=== PATIENT | female | born 1930 | race Caucasian/White ===

== ENCOUNTER → 2017-10-25 | Outpatient (CLI) | payer MEDICARE ==
[~2017-10-25] MED LIST: ASPIRIN EC325 M1 PO; ATORVASTATIN CA40 MG PO; B12INJ IM; CALCIUM 500 +1 EAC5 PO; CIPROFLOXACIN500 M1 PO; CITRUCEL500 MG PO; DILTIAZEM HCL90 MG PO; GINKGO60 MG PO; HEALTH PO; IMDUR 30 MG TAB30 M1 PO; KRILL OIL500 MG PO; LOVASTAT40 PO; NITROGLYCERIN0.4 MG SUBLING; PERCOCET 5-3251 EACH PO; PROLIA60 MG/1 ML SQ; RANITIDINE 150150 M1 PO; TRIAMTERENE/HCT1 CA1 PO; VITAMIN E400 UNI6 PO
== END ==
LOC: M.LAB 04:38
DX: Z01.812 Encounter for preprocedural laboratory examination (principal)

== ENCOUNTER 2018-09-26 10:15 | Inpatient (IN) | payer MEDICARE ==
[~2018-09-26] VITALS: Ht 152.4 cm; Wt 59.4 kg
--- NOTE | ~2018-09-26 | EKG ---
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
[2018-09-26 10:45] VITALS: BP 154/128
[2018-09-26] MEDS ORDERED: DILTIAZEM HCL90 MG PO (11:10)
[2018-09-26] MEDS ORDERED: COMBIGAN EYE DR10 ML OPHTHALMIC (11:11)
[2018-09-26] MEDS ORDERED: REPLESTA50000 UNIT PO (11:13)
[2018-09-26 11:25] LABS: HEMATOCRIT 40.3 % (37.0-47.0); MCH 30.6 pg (26.0-34.0); MCHC 32.1 g/dL (28.0-37.0); MCV 95.3 fL (80.0-100.0); MPV 9.6 fl. (7.2-11.1); RBC 4.23 mil/uL (4.20-5.00); RDW-CV 15.2 % (10.5-14.5); WBC 7.2 thou/uL (4.0-11.0)
[2018-09-26 11:38] LABS: ALBUMIN 3.5 g/dL (3.4-5.0); CALCIUM 9.2 mg/dL (8.5-10.1); CREATININE 1.4 mg/dL (0.6-1.3); POTASSIUM 3.8 mmol/L (3.5-5.1); TOTAL BILIRUBIN 0.6 mg/dL (<0.1-1.0); TOTAL PROTEIN 6.9 g/dL (6.4-8.2)
[2018-09-26 16:18] VITALS: BP 124/81
--- NOTE | 2018-09-26 17:30 | 2DMMODE ---
[place] [address] 2 D/M-MODE ECHOCARDIOGRAM Name: VIC MOON Room: [address] IN [facility]#: [id number] Admission: 09/26/18 Attend Phys: Macho Gates, Discharge: Date of : [birth year] Date of Service: 09/26/18 1729 Report #: [id number] THIS REPORT FOR: //name// APPROVED REPORT Study performed: 09/26/2018 14:48:00 EXAM: Comprehensive 2D, Doppler, and color-flow Echocardiogram Patient Location: In-Patient Room #: [facility] Status: routine BSA: 1.56 HR: 79 bpm BP: 154/128 mmHg Rhythm: Atrial Fibrillation Other Information Study Quality: Good Indications Atrial Fibrillation 2D Dimensions IVSd: 9.14 (7-11mm) LVOT Diam: 18.37 (18-24mm) LVDd: 46.77 mm PWd: 10.40 (7-11mm) Ascending Ao: 30.66 (22-36mm) LVDs: 42.13 (25-40mm) Aortic Root: 32.31 mm Volumes Left Atrial Volume (Systole) LA ESV Index: 47.40 mL/m2 Aortic Valve AoV Peak Eulalio.: 0.84 m/s AO Peak Gr.: 2.84 mmHg LVOT Max P.46 mmHg AO Mean Gr.: 1.64 mmHg LVOT Mean P.63 mmHg LVOT Max V: 0.60 m/s AO V2 VTI: 12.98 cm LVOT Mean V: 0.36 m/s BRINDA (VTI): 1.92 cm2 LVOT V1 VTI: 9.42 cm AI Pettis: 1.50 m/s2 AI PHT: 516.17 ms Mitral Valve MV Decel. Time: 98.98 [place] [address] 2 D/M-MODE ECHOCARDIOGRAM Name: VIC MOON Room: [address] IN .R.#: [id number] Admission: 09/26/18 Attend Phys: Macho Gates, Discharge: Date of : [birth year] Date of Service: 09/26/18 1729 Report #: [id number] MV PHT: 28.70 ms MVA (PHT): 7.66 cm2 TDI Medial E' Eulalio.: 0.05 m/s Lateral E' Eulalio.: 0.08 m/s Pulmonary Valve PV Peak Eulalio.: 0.62 m/s PV Peak Gr.: 1.55 mmHg Tricuspid Valve RAP Estimate: 5.00 mmHg TR Peak Gr.: 35.09 mmHg RVSP: 40.00 mmHg PA Pressure: 40.00 mmHg Left Ventricle Left ventricle is at the upper limits of normal. There is diffuse hypokinesis of left ventricular wall motion. There is normal left ventricular wall thickness. Left ventricular systolic function is severely decreased. LVEF is 25%. This study is not technically sufficient to allow evaluation of the LV diastolic function due to atrial fibrillation. Right Ventricle The right ventricle is normal size. The right ventricular systolic function is normal. Atria Left atrium is moderate to severely dilated. The right atrium size is normal. Aortic Valve Mild aortic valve sclerosis. Mild aortic regurgitation. There is no aortic valvular stenosis. Mitral Valve The mitral valve is normal in structure. Moderate mitral regurgitation. No evidence of mitral valve stenosis. Tricuspid Valve The tricuspid valve is normal in structure. Moderate tricuspid regurgitation. Moderate pulmonary hypertension. Pulmonic Valve The pulmonary valve is normal in structure. [place] [address] 2 D/M-MODE ECHOCARDIOGRAM Name: VIC MOON Room: [address] IN [facility]#: [id number] Admission: 09/26/18 Attend Phys: Macho Gates, Discharge: Date of : [birth year] Date of Service: 09/26/18 1729 Report #: [id number] Great Vessels The aortic root is normal in size. IVC is normal in size and collapses >50% with inspiration. Pericardium There is no pericardial effusion. <Conclusion> Left ventricle is at the upper limits of normal. There is normal left ventricular wall thickness. Left ventricular systolic function is severely decreased. LVEF is 25%. The right ventricle is normal size. Left atrium is moderate to severely dilated. Mild aortic valve sclerosis. There is no aortic valvular stenosis. The mitral valve is normal in structure. Moderate mitral regurgitation. The tricuspid valve is normal in structure. Moderate tricuspid regurgitation. Moderate pulmonary hypertension. IVC is normal in size and collapses >50% with inspiration. There is no pericardial effusion. There is diffuse hypokinesis of left ventricular wall motion. <ELECTRONICALLY SIGNED> By: Alec Beltran MD, FACC 09/26/181728 28 28 Alec Beltran MD, FACC /INF
[2018-09-26 20:00] VITALS: BP 123/81
[2018-09-27] VITALS (7 sets, daily range): BP systolic 103–116; BP diastolic 63–72
[2018-09-27 05:43] LABS: ABSOLUTE EOSINOPHILS 0.1 thou/uL (0.0-0.7); ABSOLUTE LYMPHOCYTES 0.8 thou/uL (0.8-5.3); ABSOLUTE MONOCYTES 0.6 thou/uL (0.0-1.2); ABSOLUTE NEUTROPHILS 3.4 thou/uL (1.6-8.1); BASOPHILS 0.7 %; EOSINOPHILS 2.2 %; HEMATOCRIT 33.3 % (37.0-47.0); MCH 30.3 pg (26.0-34.0); MCHC 32.3 g/dL (28.0-37.0); MCV 93.9 fL (80.0-100.0); MONOCYTES 12.3 %; MPV 9.7 fl. (7.2-11.1); NUCLEATED RBCS 0 /100WBC; PLATELET COUNT* 141 thou/uL (150-400); POLYS 68.8 %; RBC 3.54 mil/uL (4.20-5.00); RDW-CV 15.1 % (10.5-14.5); WBC 4.9 thou/uL (4.0-11.0)
[2018-09-27 05:47] LABS: CALCIUM 8.5 mg/dL (8.5-10.1); CREATININE 1.3 mg/dL (0.6-1.3); POTASSIUM 3.1 mmol/L (3.5-5.1)
[2018-09-27 05:50] LABS: HEMOGLOBIN 10.7 gm/dL (12.0-15.0)
--- NOTE | 2018-09-27 13:56 | EKG ---
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: : 1930 Requested By: Macho Gates Order Number: [id number] Reading MD: Alec Beltran Measurements Intervals [place] Rate: 131 P: [place]: QRS: -47 QRSD: 140 T: 134 QT: 336 QTc: 496 Interpretive Statements Atrial fibrillation with rapid ventricular response LBBB Compared to ECG 10/31/2016 16:50:10 Sinus rhythm no longer present Left ventricular hypertrophy no longer present Early repolarization no longer present LEFT BUNDLE BRANCH BLOCK noted Electronically Signed On 09-27-2018 13:56:07 CDT by Alec Beltran [email or web address] <ELECTRONICALLY SIGNED> By: Alec Beltran MD, [facility] 09/27/18 1356 1115 1115 Alec Beltran MD, [facility] /EPI
[2018-09-28] VITALS (19 sets, daily range): BP systolic 108–154; BP diastolic 53–103
[2018-09-28 05:24] LABS: ABSOLUTE EOSINOPHILS 0.2 thou/uL (0.0-0.7); ABSOLUTE LYMPHOCYTES 0.8 thou/uL (0.8-5.3); ABSOLUTE MONOCYTES 0.6 thou/uL (0.0-1.2); ABSOLUTE NEUTROPHILS 4.5 thou/uL (1.6-8.1); BASOPHILS 0.3 %; EOSINOPHILS 2.5 %; HEMATOCRIT 32.8 % (37.0-47.0); HEMOGLOBIN 10.8 gm/dL (12.0-15.0); LYMPHOCYTES 12.5 %; MCH 30.7 pg (26.0-34.0); MCHC 32.9 g/dL (28.0-37.0); MCV 93.3 fL (80.0-100.0); MONOCYTES 10.4 %; MPV 9.8 fl. (7.2-11.1); NUCLEATED RBCS 0 /100WBC; PLATELET COUNT* 153 thou/uL (150-400); POLYS 74.3 %; RBC 3.51 mil/uL (4.20-5.00); RDW-CV 15.1 % (10.5-14.5)
[2018-09-28 05:34] LABS: CALCIUM 8.6 mg/dL (8.5-10.1); CREATININE 1.4 mg/dL (0.6-1.3); POTASSIUM 3.3 mmol/L (3.5-5.1)
--- NOTE | 2018-09-28 15:08 | TEE ---
[place] [address] TRANSESOPHAGEAL ECHOCARDIOGRAM Name: VIC MOON Room: [address] IN [facility]#: [id number] Admission: 09/26/18 Attend Phys: Macho Gates, Discharge: Date of : [birth year] Date of Service: 09/28/18 1508 Report #: [id number] THIS REPORT FOR: //name// APPROVED REPORT Study performed: 09/28/2018 10:45:20 EXAM: Transesophageal Echocardiogram Patient Location: In-Patient Room #: 219 Status: routine BSA: 1.56 HR: 93 bpm BP: 133/71 mmHg Rhythm: Atrial Fibrillation Other Information Study Quality: Good Indications Atrial Fibrillation Echo Enhancing Agent Indication: Rule out Shunt Agent(s) / Amount(s) Used: Agitated Saline 10 cc Procedure After obtaining informed consent, patient underwent transesophageal echo in the [employer]. Type of Sedation : Conscious Sedation Sedation was administered by Carisa Angelo RN. Sedation start time: 1102 Case end Time: 1117 Sedation was achieved intravenously with: Versed (3) Fentanyl (25) Transesophageal probe was inserted and advanced into esophagus without difficulty by Víctor Medina MD, FACC. Echo enhancement indication: R/O Septal defect. Echo enhancement agent administered: Agitated Saline The SHERYL was performed without complications. Synchronized Cardioversion acheived with 200 Joules after 1 attempt(s). Rhythm following Synchronized Cardioversion: Normal Sinus Rhythm Throughout the procedure, the blood pressure, pulse oximetry, cardiac rhythm, and rate were monitored. The patient tolerated the procedure without adverse effects. Recovery [address] [address] TRANSESOPHAGEAL ECHOCARDIOGRAM Name: VIC MOON Ramin Room: [address] IN [facility]#: [id number] Admission: 09/26/18 Attend Phys: Macho Gates, Discharge: Date of : [birth year] Date of Service: 09/28/18 1508 Report #: [id number] from conscious sedation was uneventful and vital signs were stable. Left Ventricle The left ventricle is normal size. There is diffuse hypokinesis of the left ventricle. There is normal left ventricular wall thickness. Left ventricular systolic function is moderate to severely decreased. No left ventricle thrombus noted on this study. LVEF is 30-35%. Right Ventricle The right ventricle is normal size. The right ventricular systolic function is normal. Atria Left atrium is severely dilated No thrombus is visualized in the left atrium or appendage PFO is noted. The right atrium size is normal. Aortic Valve Mild aortic valve sclerosis. Mild aortic regurgitation. There is no aortic valvular stenosis. Mitral Valve The mitral valve is normal in structure. Moderate mitral regurgitation. No evidence of mitral valve stenosis. Tricuspid Valve The tricuspid valve is normal in structure. Moderate tricuspid regurgitation. Pulmonic Valve Pulmonic valve is not well visualized. Great Vessels The aortic root is normal in size. Pericardium There is no pericardial effusion. <Conclusion> LVEF is 30-35%. There is diffuse hypokinesis of the left ventricle. PFO is noted. There is no aortic valvular stenosis. Mild [place] [address] TRANSESOPHAGEAL ECHOCARDIOGRAM Name: SARAIVIC P Room: [address] IN ..#: [id number] Admission: 09/26/18 Attend Phys: Macho Gates, Discharge: Date of : [birth year] Date of Service: 09/28/18 1508 Report #: [id number] No evidence of mitral valve stenosis. Moderate mitral regurgitation. Left atrium is severely dilated No thrombus is visualized in the left atrium or appendage <ELECTRONICALLY SIGNED> By: Víctor Medina MD, FACC 09/28/18 1508 1508 150 Víctor Medina MD, FACC /INF
--- NOTE | 2018-09-28 16:49 | EKG ---
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: : 1930 Requested By: Víctor Medina Order Number: [id number] Reading MD: Víctor Medina Measurements Intervals [place] Rate: 54 P: 26 [place]: 252 QRS: -23 QRSD: 107 T: 259 QT: 444 QTc: 421 Interpretive Statements Sinus rhythm Prolonged WA interval Borderline left axis deviation Nonspecific T abnormalities, diffuse leads Compared to ECG 09/26/2018 11:15:20 First degree AV block now present T-wave abnormality now present Atrial fibrillation no longer present Left bundle-branch block no longer present Electronically Signed On 09-28-2018 16:49:39 CDT by Víctor Medina [email or web address] <ELECTRONICALLY SIGNED> By: Víctor Medina MD, FAC 09/28/18 1649 1124 1124 Víctor Medina MD, [facility] /EPI
[2018-09-29] VITALS: BP 135/63
[2018-09-29 05:11] VITALS: BP 107/65
[2018-09-29 10:36] VITALS: BP 124/66
[2018-09-29 12:00] VITALS: BP 107/73
[2018-09-29 12:59] LABS: URINE BILIRUBIN NEGATIVE (Negative); URINE BLOOD NEGATIVE (Negative); URINE CLARITY CLEAR; URINE COLOR YELLOW; URINE GLUCOSE-RANDOM NEGATIVE (Negative); URINE KETONES NEGATIVE (Negative); URINE LEUKOCYTES-REFLEX TRACE (Negative); URINE NITRITE-REFLEX NEGATIVE (Negative); URINE PROTEIN NEGATIVE (Negative); URINE UROBILINOGEN 0.2 E.U./dl (0.2-1.0)
[2018-09-29 13:07] LABS: SQUAMOUS 0-3 Few /LPF (0-3)
[2018-09-29 13:08] LABS: BACTERIA-REFLEX >30 Many /HPF (None Seen); CASTS None Seen /LPF (None Seen); CRYSTALS None Seen /LPF (None Seen); MUCUS None Seen strn/LPF (None Seen); URINE RBC 0-2 Rare /HPF (0-2); URINE WBC-REFLEX 6-15 Few /HPF (0-5)
[2018-09-29 16:00] VITALS: BP 88/57
[2018-09-29 20:00] VITALS: BP 101/59
[2018-09-30 04:00] VITALS: BP 111/66
[2018-09-30 05:27] LABS: CALCIUM 8.1 mg/dL (8.5-10.1); CREATININE 1.5 mg/dL (0.6-1.3); POTASSIUM 3.1 mmol/L (3.5-5.1)
[2018-09-30 08:00] VITALS: BP 115/78
[2018-09-30 12:35] VITALS: BP 114/64
[2018-09-30 16:04] VITALS: BP 107/63
[2018-09-30 20:00] VITALS: BP 109/70
[2018-10-01] VITALS: BP 123/76
[2018-10-01 04:00] VITALS: BP 111/66
[2018-10-01 04:23] LABS: ABSOLUTE EOSINOPHILS 0.2 thou/uL (0.0-0.7); ABSOLUTE LYMPHOCYTES 0.8 thou/uL (0.8-5.3); ABSOLUTE MONOCYTES 0.6 thou/uL (0.0-1.2); ABSOLUTE NEUTROPHILS 3.8 thou/uL (1.6-8.1); BASOPHILS 0.6 %; EOSINOPHILS 2.9 %; HEMOGLOBIN 11.3 gm/dL (12.0-15.0); LYMPHOCYTES 14.9 %; MCH 30.3 pg (26.0-34.0); MCHC 32.5 g/dL (28.0-37.0); MCV 93.3 fL (80.0-100.0); MPV 9.6 fl. (7.2-11.1); NUCLEATED RBCS 0 /100WBC; PLATELET COUNT* 159 thou/uL (150-400); POLYS 70.6 %; RBC 3.75 mil/uL (4.20-5.00); RDW-CV 14.9 % (10.5-14.5); WBC 5.4 thou/uL (4.0-11.0)
[2018-10-01 04:27] LABS: CALCIUM 8.6 mg/dL (8.5-10.1); CREATININE 1.3 mg/dL (0.6-1.3)
[2018-10-01 04:50] LABS: POTASSIUM 5.1 mmol/L (3.5-5.1)
[2018-10-01 08:00] VITALS: BP 97/75
[2018-10-01] MEDS ORDERED: ELIQUIS2.5 MG PO (12:04)
[2018-10-01] MEDS ORDERED: PACERONE 200 M200 M1 PO (12:04)
[2018-10-01] MEDS ORDERED: LOSARTAN POTASS50 MG PO (12:05)
[2018-10-01] MEDS ORDERED: KAPSPARGO SPRIN25 MG PO (12:06)
[2018-10-01] MEDS ORDERED: TYLENOL EXTRA500 MG PO (12:07)
[2018-10-01 12:20] VITALS: BP 111/73
[2018-10-01] MEDS ORDERED: TOPROL XL25 MG PO (12:20)
[2018-10-01] MEDS ORDERED: DILTIAZEM HCL90 MG PO (12:21)
--- NOTE | 2018-10-01 14:48 | EKG ---
[place] [address] ELECTROCARDIOGRAM REPORT Name: VIC MOON Room: [address] IN .R.#: [id number] Admission: 09/26/18 Attend Phys: Macho Gates MD Discharge: 10/01/18 Date of : [birth year] Report #: [id number] THIS REPORT FOR: //name// [facility] Test Date: 2018-09-30 Test Time: 20:17:01 Pat Name: VIC MOON Department: Room: [address] Gender: F Electrician Master: : 1930 Requested By: Allen Guerra Order Number: [id number] Viry MD: Dion Sandoval Measurements Intervals [place] Rate: 94 P: [place]: QRS: -48 QRSD: 147 T: 132 QT: 401 QTc: 502 Interpretive Statements Atrial fibrillation Left bundle branch block Compared to ECG 09/28/2018 11:24:09 Left bundle-branch block now present Sinus rhythm no longer present First degree AV block no longer present T-wave abnormality no longer present Electronically Signed On 10-01-2018 14:48:47 CDT by Dion Sandoval [email or web address] <ELECTRONICALLY SIGNED> By: Dion Sandoval MD, FAC 10/01/18 1448 16 16 Dion Sandoval MD, [facility] /EPI
--- NOTE | 2018-10-03 08:25 | 24HR ---
[place] [address] HOLTER MONITOR REPORT Name: VIC MOON Room: [address]#: [id number] Admission: 09/26/18 Attend Phys: Macho Gates, Discharge: 10/01/18 Date of : [birth year] Date of Service: 09/28/18 1509 Report #: [id number] THIS REPORT FOR: //name// CC: Macho Resendez DATE OF SERVICE: 09/28/2018 INPATIENT SHERYL-GUIDED CARDIOVERSION INDICATION: Atrial fibrillation, congestive heart failure. The patient presents with rapid atrial fibrillation, which was poorly controlled despite aggressive IV medications. She presents with cardiomyopathy and acute systolic congestive heart failure. CONSENT: The risks and benefits of the procedure described to the patient in lay terms. The patient elects to proceed. After informed consent, the patient was taken to the labor supervisor. A transesophageal echocardiogram was performed. Conscious sedation was administered prior to this with usual monitoring of heart rate, oxygenation, saturation, blood pressure, and respiratory rate. After reassessing level of sedation, the transesophageal probe was withdrawn and a DC cardioversion 200 joules, biphasic was utilized to convert the patient from atrial fibrillation heart rates in the one-teens to sinus bradycardia heart rates in the mid 50s. The patient tolerated the procedure well. IMPRESSION: 1. Successful transesophageal echocardiogram-guided cardioversion. 2. Atrial fibrillation. 3. Congestive heart failure. <ELECTRONICALLY SIGNED> By: Allen Guerra MD, FACC 10/03/18 0825 1509 1944 Víctor Medina MD, FACC /nt
== END 2018-10-01 14:36 | disposition home or self-care (01) | DRG 291 ==
LOC: M.2W 10:15
PROVIDERS: Internal Medicine Cardiovascular Disease; ADMIT Internal Medicine
PROC: B24BZZ4 Ultrasonography of Heart with Aorta, Transesophageal (ICD-10-PCS; principal; 2018-09-28)
PROC: 5A2204Z Restoration of Cardiac Rhythm, Single (ICD-10-PCS; principal; 2018-09-28)
DX: I13.0 Hypertensive heart and chronic kidney disease with heart failure and stage 1 through stage 4 chronic kidney disease, or unspecified chronic kidney disease (principal); I50.31 Acute diastolic (congestive) heart failure; N17.9 Acute kidney failure, unspecified; N39.0 Urinary tract infection, site not specified; R06.03 Acute respiratory distress; I25.10 Atherosclerotic heart disease of native coronary artery without angina pectoris; D64.9 Anemia, unspecified; I42.9 Cardiomyopathy, unspecified; N18.3 Chronic kidney disease, stage 3 (moderate); I48.2 Chronic atrial fibrillation; Z88.5 Allergy status to narcotic agent; Z91.041 Radiographic dye allergy status; Z79.82 Long term (current) use of aspirin; Z79.899 Other long term (current) drug therapy; Z95.1 Presence of aortocoronary bypass graft

== ENCOUNTER → 2018-10-16 | Outpatient (CLI) | payer MEDICARE ==
[~2018-10-16] MED LIST changes: +COMBIGAN EYE DR10 ML OPHTHALMIC; +ELIQUIS2.5 MG PO; +KAPSPARGO SPRIN25 MG PO; +LOSARTAN POTASS50 MG PO; +PACERONE 200 M200 M1 PO; +REPLESTA50000 UNIT PO; +TOPROL XL25 MG PO; +TYLENOL EXTRA500 MG PO
[2018-10-16 10:14] LABS: CREATININE 1.2 mg/dL (0.6-1.3); POTASSIUM 3.2 mmol/L (3.5-5.1)
== END ==
LOC: M.LAB 09:49
PROVIDERS: Registered Nurse
DX: I50.42 Chronic combined systolic (congestive) and diastolic (congestive) heart failure (principal); I48.91 Unspecified atrial fibrillation

== ENCOUNTER → 2018-10-24 | Outpatient (CLI) | payer MEDICARE ==
[2018-10-24 13:28] LABS: CALCIUM 9.2 mg/dL (8.5-10.1); CREATININE 1.5 mg/dL (0.6-1.3); POTASSIUM 4.2 mmol/L (3.5-5.1)
== END ==
LOC: M.LAB 12:59
PROVIDERS: Nurse Practitioner
DX: I50.32 Chronic diastolic (congestive) heart failure (principal)

== ENCOUNTER 2018-11-03 22:18 | Inpatient (IN) | payer MEDICARE ==
[~2018-11-03] VITALS: Ht 152.4 cm; Wt 59.5 kg
--- NOTE | ~2018-11-03 | OP ---
[address] [address] OPERATIVE REPORT Name: SARAIVIC M Room: [address] IN M.R.#: [id number] Admission: 11/03/18 Attend Phys: Hira Zhou MD Discharge: Date of : [birth year] Report #: [id number] THIS REPORT FOR: //name// CC: Prince Zhou DATE OF SERVICE: 11/05/2018 PREOPERATIVE DIAGNOSIS: Left intertrochanteric femur fracture. POSTOPERATIVE DIAGNOSIS: Left intertrochanteric femur fracture. PROCEDURES: 1. Closed reduction and cephalomedullary nailing of left intertrochanteric femur fracture. 2. Physician-directed fluoroscopy less than 1 hour. SURGEON: Hira Moore DO. MICROBIOLOGY LAB MANAGER: Milvia Dodge DO ANESTHESIA: General. ANTIBIOTICS: Ancef IV preoperatively. BLOOD LOSS: 150 mL. FLUIDS: 600 mL. COMPLICATIONS: None. SPECIMENS: None. DRAINS: None. CONDITION: The patient is stable to PACU. IMPLANTS: Monica gamma nail 11 x 180 mm x 125 degree with appropriately sized lag and distal interlocking screw. INDICATIONS FOR PROCEDURE: The patient admitted to [facility] with a left intertrochanteric femur fracture. Our consultation was requested. I went over with the family and the patient diagnosis, plan for surgery, reasoning for surgery, risks and complications associated. They wished to proceed. We obtained consent. [address] [place] [address] OPERATIVE REPORT Name: VIC MOON Room: [address] IN M.R.#: [id number] Admission: 11/03/18 Attend Phys: Hira Zhou MD Discharge: Date of : [birth year] Report #: [id number] DESCRIPTION OF PROCEDURE: I marked the left lower extremity in the presence of the operative team members. Everyone agreed this was correct. She was taken back to the operative suite where general anesthetic was administered. She was then transferred over to the operating table in supine position, well padded and secured. The table was then used to gain traction and control rotation and reduced the fracture. C-arm confirmed that we had reduced the fracture appropriately in multiple planes. The left lower extremity was then sterilely prepped and draped in standard fashion. Timeout was performed indicating correct patient, procedure, site, antibiotics and that implants were present and sterile. All team members agreed. Using the C-arm to help marked out incisions. Incision was made proximal to the greater trochanter. Dissection down to the trochanter. A guidewire was inserted and advanced on multiplanar C-arm imaging confirmed to be in appropriate position and then reamed over. Implant timeout performed and the final nail was thrown on the back table and the 11 x 180 mm x 125 degree nail was inserted into the femur. Incision made for a double sleeve for lag screw placement. This was placed down to bone. A guidewire was placed in appropriate position on multiplanar C-arm imaging and advanced into the head appropriately. Measured, reamed and placed the appropriately sized lag screw. During lag screw placement, multiple images were taken showing that we did not have any rotation or malreduction of the fracture. We then engaged our set screw fully and backed off a quarter turn, confirmed that it was engaged by not being able to turn the lag screwdriver handle. We then removed the lag screwdriver handle, triple sleeve down to bone for static interlocking screw after making an incision, drilled, measured and placed an appropriately-sized distal interlocking screw. External aiming devices removed. Final C-arm images showed excellent placement of hardware and reduction of fracture. Saved images and dismissed C-arm thoroughly irrigated with normal saline. Closure was with 0 Vicryl deep [id number] interrupted, 2-0 Monocryl subcutaneous and then emma for skin. Debriefing performed where we confirmed procedure, blood loss and that all counts were correct and final. All team members agreed. Sterile silver impregnated dressings were applied and she was extubated and taken off the operative table to PACU stable. POSTOPERATIVE COURSE AND EVALUATION: I spoke with her family members, addressed any questions they had. They were thankful for my time and efforts. She was resting in PACU, stable vital signs, pain controlled, neurovascularly intact in her extremities. PACU films showed stable internal fixation and fracture reduction. DVT prophylaxis will be pharmacological and mechanical. Weightbear as tolerated. PT, OT, case management to help with discharge planning. I encouraged nursing staff and all providers to [place] [address] OPERATIVE REPORT Name: VIC MOON Room: [address] IN .R.#: [id number] Admission: 11/03/18 Attend Phys: Hira Zhou MD Discharge: Date of : [birth year] Report #: [id number] Amended 11/07/18 for demographic error correction. By: 0830 0849Hira Moore DO /teto
[2018-11-03] MEDS ORDERED: FUROSEMIDE 40 M40 M1 PO (22:43)
[2018-11-03] MEDS ORDERED: POTASSIUM20 PO (22:43)
[2018-11-03] MEDS ORDERED: VITAMIN D250000 UNIT PO (22:44)
[2018-11-03] MEDS ORDERED: SPIRONOLACTONE25 M1 PO (22:44)
[2018-11-03 22:54] LABS: ABSOLUTE BASOPHILS 0.1 thou/uL (0.0-0.2); ABSOLUTE EOSINOPHILS 0.2 thou/uL (0.0-0.7); ABSOLUTE MONOCYTES 0.6 thou/uL (0.0-1.2); ABSOLUTE NEUTROPHILS 4.2 thou/uL (1.6-8.1); BASOPHILS 1.1 %; EOSINOPHILS 3.5 %; HEMATOCRIT 35.4 % (37.0-47.0); HEMOGLOBIN 11.5 gm/dL (12.0-15.0); LYMPHOCYTES 16.9 %; MCH 29.9 pg (26.0-34.0); MCHC 32.5 g/dL (28.0-37.0); MONOCYTES 10.2 %; MPV 9.3 fl. (7.2-11.1); NUCLEATED RBCS 0 /100WBC; PLATELET COUNT* 196 thou/uL (150-400); POLYS 68.3 %; RBC 3.85 mil/uL (4.20-5.00); RDW-CV 15.9 % (10.5-14.5); WBC 6.2 thou/uL (4.0-11.0)
[2018-11-03 23:03] LABS: ANION GAP 10 mmol/L (7-16); BUN 21 mg/dL (7-18); CALCIUM 8.7 mg/dL (8.5-10.1); CHLORIDE 108 mmol/L (98-107); CO2 26 mmol/L (21-32); CREATININE 1.4 mg/dL (0.6-1.3); GLUCOSE 146 mg/dL (70-99); POTASSIUM 4.4 mmol/L (3.5-5.1); SODIUM 144 mmol/L (136-145)
[2018-11-03 23:04] LABS: INR 1.2
[2018-11-03 23:14] LABS: ALBUMIN 2.9 g/dL (3.4-5.0); ALKALINE PHOSPHATASE 79 U/L (46-116); NT-PRO BRAIN NAT PEPTIDE 17385 pg/mL (<300); SGOT 14 U/L (15-37); SGPT 21 U/L (30-65); TOTAL BILIRUBIN 0.3 mg/dL (<0.1-1.0); TOTAL PROTEIN 6.2 g/dL (6.4-8.2); TROPONIN-I LEVEL <0.06 ng/mL (<0.06)
[2018-11-04] VITALS (8 sets, daily range): BP systolic 93–144; BP diastolic 58–98
[2018-11-04 01:22] LABS: URINE BILIRUBIN NEGATIVE (Negative); URINE BLOOD 1+ (Negative); URINE CLARITY CLEAR; URINE COLOR YELLOW; URINE GLUCOSE-RANDOM NEGATIVE (Negative); URINE KETONES NEGATIVE (Negative); URINE LEUKOCYTES-REFLEX NEGATIVE (Negative); URINE NITRITE-REFLEX NEGATIVE (Negative); URINE PROTEIN NEGATIVE (Negative); URINE UROBILINOGEN 0.2 E.U./dl (0.2-1.0)
[2018-11-04 01:38] LABS: SQUAMOUS NONE SEEN /LPF (0-3)
[2018-11-04 01:39] LABS: HYALINE CASTS 0-3 Few /LPF (None Seen)
[2018-11-04 01:40] LABS: BACTERIA-REFLEX >30 Many /HPF (None Seen); CRYSTALS None Seen /LPF (None Seen)
[2018-11-04] MEDS ORDERED: CALCIUM CITRAT1 EAC7 PO (02:50)
--- NOTE | 2018-11-04 05:21 | NUR ---
RECEIVED REPORT FROM LORI CARPENTER. PT TRANSFERRED TO 226. PT A&OX4. VSS. ADMISSION HISTORY & PHYSICAL ASSESSMENT COMPLETED AND CHARTED. FAMILY AT BS. PT ON RA. PT TRACING AFIB RVR BBB ON TELE. HR 110'S-120'S. STARTED ON CARDIZEM DRIP ORDERED. PT WITH UROSTOMY AND CLAIMED DO SELF CATHETERIZATION BY HERSELF Q4 WHILE AWAKE. PT COMPLAINED OF LEFT HIP PAIN- MEDS GIVEN PER MAR. CALL LIGHT WITHIN REACH.
--- NOTE | 2018-11-04 09:38 | NUR ---
ASSUMED CARE OF PT THIS AM AROUND 07- HOME CARE MANAGER RN IN PLACE ORDERED, TRACING A-FIB/BBB 110-120'2, CARDIZEM DRIP IN PLACE ORDERED- UPON ASSESSMENT PT NOTED TO BE RESTING IN BED, DAUGHTER AT SIDE- PT A&O X4- CONTINENT OF BOWEL, UROSTOMY NOTED TO RLQ, PT PERFORMS OWN STRAIGHT CATHS WITH DAUGHTERS ASSISTANCE- BED REST IN PLACE WITH Q 2 HOUR TURNS- LCTA, RESP EVEN AND UN-LABORED- VSS, O2 SAT 93% ON RA- ABD SOFT/ROUND/NON-TENDER, BS X4 QUADS- LAST BM REPORTED 11/03/18- IV NOTED TO RIGHT INTACT- SLIGHT SWELLING TO LLE WITH +1 PEDAL PULSE, 2+ TO RLE-TRACTION RECOMMENDED IF PT STARTS TO EXPERIENCE INCREASED PAIN WITH SPASMS PER ORTHO THIS AM- JAMAL ORR ON HOLD FOR PLANNED SURGERY IN AM, PT TO BE NPO AT MIDNIGHT- PAIN REPORTED TO BE CONTROLLED AT THIS TIME- CALL LIGHT AND PERSONAL BELONGINGS WITH IN REACH- HOURLY ROUNDS IN PLACE R/T SAFETY/NEEDS- ALL NEEDS MET AT THIS TIME-WCTM
--- NOTE | 2018-11-04 10:55 | CON ---
[address] [address] CONSULTATION Name: VIC MOON Room: [address] IN M.R.#: [id number] Admission: 11/03/18 Attend Phys: Hira Zhou MD Discharge: Date of : [birth year]/03/[birth year] Report #: [id number] THIS REPORT FOR: //name// CC: Prince Resendez DO Hira Zhou DATE OF SERVICE: 11/04/2018 CARDIOLOGY CONSULTATION HISTORY OF PRESENT ILLNESS: The patient is an 88-year-old, single white female, who I was asked to see in the hospital today for preoperative evaluation. The patient has an extensive past medical history. She apparently had multivessel coronary artery bypass surgery at [facility] in 1992. Recently, she has been followed by my partner, Dr. Sandoval. She presented in September with shortness of breath. She was found to be in atrial fibrillation. She was cardioverted, but had recurrent atrial fibrillation. It was decided to aim for rate control and anticoagulation with Xarelto. She has had no significant bleeding since that time. She denied any recent chest pain. However, she does get short of breath with exertion. She denies her heart beating irregularly or syncope. Yesterday, she was out in the yard, walking the dog when she apparently tripped and fell. She complained of hip pain and was brought here to [place] by ambulance. She was found to have a hip fracture. She is scheduled for surgery. I was asked to see her for preoperative evaluation. PAST MEDICAL HISTORY: Significant for urinary diversion. She has had a hysterectomy for cervical cancer. She has no history of diabetes. MEDICATIONS: At home consist of ranitidine, Eliquis, losartan, metoprolol, diltiazem, spironolactone. ALLERGIES: SHE HAS A PREVIOUS INTOLERANCE TO CONTRAST AND MORPHINE. FAMILY HISTORY: Positive for heart disease. SOCIAL HISTORY: [place] is , [place] No smoking or alcohol abuse. REVIEW OF SYSTEMS: She has had no history of stroke, asthma, peptic ulcer disease, liver disease, kidney disease, psychiatric illness or chronic skin condition. PHYSICAL EXAMINATION: GENERAL: Revealed an elderly frail-appearing female, [place] [address] CONSULTATION Name: VIC MOON Room: [address]#: [id number] Admission: 11/03/18 Attend Phys: Hira Zhou MD Discharge: Date of : [birth year]/03[birth year] Report #: [id number] VITAL SIGNS: Showed a blood pressure of 110/60, pulse is 100. She is afebrile. HEENT: She was anicteric. Conjunctivae pale. Mucous members appear dry. NECK: Veins do not appear distended. CHEST: Clear to auscultation. CARDIOVASCULAR: Irregular tachycardia. No significant murmur. ABDOMEN: Soft. EXTREMITIES: Had no edema. Dorsalis pedis pulse cannot be palpated. SKIN: Cool and dry. NEUROLOGIC: Nonfocal. On the monitor, she appears to be in atrial fibrillation, with increased ventricular response rate. LABORATORY DATA: On her workup, she actually had an echocardiogram in September which showed ejection fraction of only 25%, atrial enlargement, aortic sclerosis, moderate mitral regurgitation, moderate tricuspid insufficiency, moderate pulmonary hypertension. Her last nuclear stress test in 2016 showed no evidence of ischemia, apical defect, no reversible defects. Ejection fraction appeared preserved. Her lab work: Sodium 144, BUN 21, creatinine 1.4, glucose 146. Her albumin is 2.9. Troponin 0.06. BNP 17,385 in September. TSH was 2.8. White blood cell count 6.2, hemoglobin 11.5. IMPRESSION AND RECOMMENDATIONS: 1. Persistent atrial fibrillation. The patient is on a beta saad and calcium saad for rate control. The patient has been anticoagulated with Eliquis. 2. Cardiomyopathy. The patient has been on an ARB and beta saad and Aldactone. 3. History of urinary diversion. The patient has an ileostomy in place. 4. Contrast allergy. 5. Hip fracture. The patient is scheduled for hip surgery. The patient appears to have no cardiac contraindication to surgery. However, she will be at risk for cardiac complications because of her advanced age, history of coronary artery disease, history of cardiomyopathy, history of atrial fibrillation. She will need to hold her Eliquis prior to surgery which will put her at risk for stroke. <ELECTRONICALLY SIGNED> By: Allen Guerra MD, FACC 11/04/18 1055 [id number] Guerra MD, FACC /nt
--- NOTE | 2018-11-04 11:35 | EKG ---
[place] [address] ELECTROCARDIOGRAM REPORT Name: SARAIVIC Bucky Room: [address] ADM IN M.R.#: [id number] Admission: 11/03/18 Attend Phys: Hira Zhou MD Discharge: Date of : [birth year]/03/[birth year] Report #: [id number] THIS REPORT FOR: //name// [facility] ED Test Date: 2018-11-03 Test Time: 22:40:24 Pat Name: VIC MOON Department: Room: [facility] Gender: F Batcher Operator: [place] : 1930 Requested By: Anjali Maldonado Order Number: [id number] MD: Allen Guerra Measurements Intervals [place] Rate: 111 P: [place]: QRS: -47 QRSD: 163 T: 138 QT: 409 QTc: 556 Interpretive Statements Atrial fibrillation Left bundle branch block Compared to ECG 09/30/2018 20:17:01 rate increased Electronically Signed On 11-04-2018 11:35:37 CDT by Allen Guerra [email or web address] <ELECTRONICALLY SIGNED> By: Allen Guerra MD, [facility] 11/04/18 1135 [id number] [id number] Allen Guerra MD, FACC /EPI
--- NOTE | 2018-11-04 16:29 | NUR ---
PT CURRENTLY RESTING IN BED SLLEEPING- DAUGHTER AT SIDE- PT NOTED TO HAVE SEVERAL VISITORS THROUHG OUT SHIFT, UNABLE TO REST WELL- PERCH MENDER IN PLACE ORDERED, TRACING A-FIB 98-117 AT THIS THIS TIME- CARDIZEM 90 MG TID STARTED THIS SHIFT ALONG WITH METOPROLOL; CARDIZEM DRIP D/C'D AROUND 1115- PRN HYDROCODONE GIVEN X1 THIS SHIFT AT 1129, PT DENIES NNED FOR PAIN MEDICATIONS AT THIS TIME- CALL LIGHT AND PERSONAL BELONGINGS WITH IN REACH- FREQUENT CHECKS IN PLACE R/T SAFETY/NEEDS- ALL NEEDS MET AT THIS TIME-WCTM
[2018-11-05] VITALS (8 sets, daily range): BP systolic 79–114; BP diastolic 41–69
[2018-11-05 05:00] LABS: CALCIUM 9.3 mg/dL (8.5-10.1); CREATININE 1.6 mg/dL (0.6-1.3); HEMATOCRIT 28.5 % (37.0-47.0); MAGNESIUM 1.9 mg/dL (1.8-2.4); MCH 30.2 pg (26.0-34.0); MCHC 32.7 g/dL (28.0-37.0); MCV 92.4 fL (80.0-100.0); MPV 9.7 fl. (7.2-11.1); POTASSIUM 5.2 mmol/L (3.5-5.1); RBC 3.09 mil/uL (4.20-5.00); RDW-CV 15.6 % (10.5-14.5); WBC 6.3 thou/uL (4.0-11.0)
[2018-11-05 05:03] LABS: INR 1.1; PROTIME 11.4 Seconds (9.20-11.50)
[2018-11-05 05:11] LABS: HEMOGLOBIN 9.3 gm/dL (12.0-15.0)
--- NOTE | 2018-11-05 05:15 | NUR ---
PT CARE ASSUMED AT 1930. SAT MAINTAINED IN RA. CALL LIGHT WITHIN REACH AND BED IN LOW POSITION. C/O PAIN, MEDICATION GIVEN PER EMAR. UROSTOMY PRESENT, PT SELF CATHETERIZES HESELF WITH THE HELP OF DAUGHTER. PEDAL PULSE 1+ NOTED. HOURLY ROUNDING DONE FOR PT SAFETY.
--- NOTE | 2018-11-05 12:37 | EKG ---
[place] [address] ELECTROCARDIOGRAM REPORT Name: VIC MOON Room: [address] ADM IN M.R.#: [id number] Admission: 11/03/18 Attend Phys: Hira Zhou MD Discharge: Date of : [birth year]/03/[birth year] Report #: [id number] THIS REPORT FOR: //name// [facility] Test Date: 2018-11-05 Test Time: 08:41:47 Pat Name: VIC MOON Department: Room: [address] Gender: F Pants Busheler: : 1930 Requested By: Hira Moore Order Number: [id number] Viry MD: Allen Guerra Measurements Intervals [place] Rate: 101 P: [place]: QRS: -65 QRSD: 157 T: 129 QT: 413 QTc: 536 Interpretive Statements Atrial fibrillation Left bundle branch block Compared to ECG 11/03/2018 22:40:24 No significant changes Electronically Signed On 11-05-2018 12:37:15 CDT by Allen Guerra [email or web address] <ELECTRONICALLY SIGNED> By: Allen Guerar MD, [facility] 11/05/18 1237 0 0 Allen Guerra MD, FACC /EPI
--- NOTE | 2018-11-05 13:40 | NUR ---
Pt just returned to the room from surgery, spoke with 2 sons at bedside. Pt resides at home alone, but son states that for the past 6 weeks, family has been rotating staying with Pt post a recent hospital stay. Pt is independent. Uses a walker or wc in the community for mobility, per son, Pt gets SOB with ambulation, but does not have any home o2. Pt fell while letting the dog out, son wants to see if Pt will qualify for acute rehab at mo. No hx of HH or SNF. Therapy evals pending. Following.
[2018-11-06] VITALS (9 sets, daily range): BP systolic 89–130; BP diastolic 45–71
[2018-11-06 05:05] LABS: HEMOGLOBIN 8.2 gm/dL (12.0-15.0)
--- NOTE | 2018-11-06 05:28 | NUR ---
PT CARE ASSUMED AT 1930. SAT MAINTAINED IN O2. CALL LIGHT WITHIN REACH AND BED IN LOW POSITION. ALERT AND ORIENTED X3. C/O PAIN, MEDICATION GIVEN PER EMAR. SON IN LAW PRESENT AT BEDSIDE. HOURLY ROUNDING DONE FOR PT SAFETY.
--- NOTE | 2018-11-06 10:01 | NUR ---
ASSUMED CARE OF PT AT 0730. PT RESTING IN BED. SON AT BEDSIDE. PT A&0X2, ORIENTED TO PERSON AND PLACE. FORGETFUL AND CONFUSED. EASILY REDIRECTABLE. PT TRACING AFIB ON THE OPTIONS ADVISOR. RATE IN THE LOW 100'S. BLOOD PRESSURE SOFT AT 80'2/40'S. AM BLOOD PRESSURE MEDICATIONS HELD. ORDERS RECEIVED FOR 1 LITER NS WIDE OPEN. REFER TO EMAR. ON 4L NC SAT 93%. CONTINUOUS PULSE OX IN PLACE. PT DENIES ANY PAIN OR SHORTNESS OF BREATH AT THIS TIME. RLQ UROSTOMY IN PLACE WITH SUPRAPUBLIC VALLEJO CATHETER IN PLACE- MINIMAL DRAINAGE LESS THAN 50 CC. HOSPITALIST AWARE. PT UP WITH 1 ASSIST, WBAT. DRESSING TO LEFT HIP C/D/I. PT GOAL FOR TODAY IS WORK WITH PT AND OT, MAINTAIN SBP >100 AND HEART RATE <100 AND TITRATE OXYGEN. AM ASSESSMENT CHARTED. MEDICATIONS PER JUN. PT REPOSITIONED EVERY 2 HOURS FOR COMFORT. HOURLY ROUNDING OBSERVED. BED IN LOW POSITION. BED ALARM IN PLACE. FALL PRECAUTIONS IN PLACE. CALL LIGHT WITHIN REACH. WILL CONTINUE PLAN OF CARE.
[2018-11-06 18:23] LABS: HEMATOCRIT 30.4 % (37.0-47.0); HEMOGLOBIN 10.1 gm/dL (12.0-15.0)
--- NOTE | 2018-11-06 18:26 | NUR ---
NO ACUTE CHANGES THROUGHOUT SHIFT .REFER TO CHARTING. UROLOGY HERE TO SEE PT. UROLOGY DISCONTINUED VALLEJO CATHETER AND STRAIGHT CATH PT- 550 OUTPUT. ORDERS RECEIVED TO STRAIGHT CATH 4 X/DAY. ORDERS RECEIVED FOR CT ABDOMEN AND PELVIS. 1 UNIT PRBC TRANSFUSED WITH NO REACTION. PT TOLERATED WELL. AWAITING RECHECK OF HGB AT THIS TIME. CARDIOLOGY HERE TO SEE PT. ORDERS RECEIVED FOR DIGOXIN IVP. REFER TO EMAR. PT CONTINUES TO TRACE AFIB ON THE LD TEACHER. RATE IN THE LOW 100'S. ON 4L NC SAT UPPER 90'S. PT DENIES ANY PAIN OR SHORTNESS OF BREATH AT THIS TIME. PT CONTINUES TO BE A&0X2-3, FORGETFUL AT TIMES. FAMILY AT BEDSIDE THROUGHOUT SHIFT. PT TO HAVE CXR IN AM. SLOWLY PROGRESSING TOWARDS GOALS. MEDICATIONS PER JUN. PT REPOSITIONED EVERY 2 HOURS FOR COMFORT. HOURLY ROUNDING OBSERVED. BED IN LOW POSITION. BED ALARM IN PLACE. FALL PRECAUTIONS IN PLACE. CALL LIGHT WITHIN REACH. WILL CONTINUE PLAN OF CARE.
[2018-11-07] VITALS (8 sets, daily range): BP systolic 125–184; BP diastolic 58–79
[2018-11-07 05:32] LABS: HEMATOCRIT 28.9 % (37.0-47.0); HEMOGLOBIN 9.8 gm/dL (12.0-15.0); MCH 30.5 pg (26.0-34.0); MCHC 33.7 g/dL (28.0-37.0); MCV 90.4 fL (80.0-100.0); MPV 9.6 fl. (7.2-11.1); RBC 3.2 mil/uL (4.20-5.00); RDW-CV 15.4 % (10.5-14.5); WBC 6.3 thou/uL (4.0-11.0)
[2018-11-07 05:41] LABS: CALCIUM 8.4 mg/dL (8.5-10.1); CREATININE 1.3 mg/dL (0.6-1.3); MAGNESIUM 1.9 mg/dL (1.8-2.4)
--- NOTE | 2018-11-07 07:41 | NUR ---
PT CARE ASSUMED AT 1930. SAT MAINTAINED IN O2. PT IS CONFUSED AND FORGETFUL AT TIMES BUT REDIRECTS EASILY. CALL LIGHT WITHIN REACH AND BED IN LOW POSITION. DAUGHTER PRESENT AT BEDSIDE. C/O PAIN, MEDICATION GIVEN PER EMAR. PT SELF CATHS HERSELF WITH THE HELP OF DAUGHTER. HOURLY ROUNDING DONE FOR PT SAFETY.
--- NOTE | 2018-11-07 13:17 | NUR ---
ASSUMED CARE OF PT AT 0730. PT LYING IN BED. FAMILY AT BEDSIDE. PT A&0X3, FORGETFUL AND CONFUSED AT TIMES. PT DENIES ANY PAIN OR SHORTNESS OF BREATH. PT TRACING AFIB ON THE INPATIENT AUDITOR. RATE IN THE LOW 100'S. PT ON 2L NC SAT 94%. PT GOAL FOR TODAY IS TO WORK WITH PT AND OT, PAIN MGMT AND MAINTAIN SBP GREATER THAN 100 AND HEART RATE BELOW 100. CARDIOLOGY HERE TO SEE PT. ORDERS RECEIVED FOR IV DIGOXIN, PO CARDIZEM AND IV LASIX. PT BLOOD PRESSURE BETTER THIS AM, 130'S/70'S. PT GIVEN PO CARDIZEM AND SHORTLY AFTER HAD AN EPISODE OF EMESIS. PT STRAIGHT CATH 4X/DAY. ORDERS RECEIVED FOR REPEAT URINALYSIS. PT UP WITH ASSIST-WBAT TO LLE. AM ASSESSMENT CHARTED. MEDICATIONS PER JUN. PT REPOSITIONED EVERY 2 HOURS FOR COMFORRT. HOURLY ROUNDING OBSERVED. BED IN LOW POSITION. BED ALARM IN PLACE. FALL PRECAUTIONS IN PLACE. CALL LIGHT WITHIN REACH. WILL CONTINUE PLAN OF CARE.
--- NOTE | 2018-11-07 18:33 | NUR ---
NO ACUTE CHANGES THROUGHOUT SHIFT. REFER TO CHARTING. PT FAMILY ABLE TO STRAIGHT CATH PT THIS AM WITH 450CC OUTPUT. AT APPROXIMATELY 1400, PT FAMILY MEMEBER STATES UNABLE TO STRAIGHT CATH PT, MEETING RESISTANCE. THIS RN AND CULLET WASHER ATTEMPTED TO STRAIGHT CATH WITH NO RESULTS. RESISTANCE MET AND CATHETER APPEARS TO CURL UP. UROLOGY NOTIFIED. DR BEAULIEU HERE AND ASSESSED PT BUT HAD TO LEAVE FOR PROCEDURE AND WILL RETURN. UROLOGY CART OBTAINED FROM HOUSE SUP AND IN PT ROOM AT THIS TIME. PT HAD 2 EPISODES OF EMESIS THIS AFTERNOON. TREATED WITH PRN ZOFRAN WITH PARTIAL RELIEF. PT APPETITE POOR. PT CONTINUES TO BE FORGETFUL AND CONFUSED AT TIMES, EASILY REDIRECTABLE. PT CONTINUES TO TRACE AFIB ON THE BAR TACKER SEWING MACHINE. RATE CONTROLLED. ON 2L NC SAT 94%. DENIES ANY SHORTNESS OF BREATH. PT WORKED WITH PT AND OT TODAY- TOLERATED FAIR- UP TO RECLINER FOR SHORT PERIOD OF TIME. PT NOT PROGRESSING TOWARDS GOALS. MEDICATIONS PER MAR. PT REPOSITIONED EVERY 2 HOURS FOR COMFORT. HOURLY ROUNDING OBSERVED. BED IN LOW POSITION. BED ALARM IN PLACE. FALL PRECAUTIONS IN PLACE. CALL LIGHT WITHIN REACH. WILL CONTINUE PLAN OF CARE.
[2018-11-07 23:56] LABS: URINE BILIRUBIN NEGATIVE (Negative); URINE BLOOD 3+ (Negative); URINE CLARITY CLEAR; URINE COLOR RED; URINE GLUCOSE-RANDOM NEGATIVE (Negative); URINE KETONES NEGATIVE (Negative); URINE LEUKOCYTES-REFLEX NEGATIVE (Negative); URINE NITRITE-REFLEX NEGATIVE (Negative); URINE PROTEIN 2+ (Negative); URINE SPECIFIC GRAVITY 1.015 (1.005-1.030); URINE UROBILINOGEN 0.2 E.U./dl (0.2-1.0)
[2018-11-08 00:35] LABS: SQUAMOUS 0-3 Few /LPF (0-3)
[2018-11-08 00:36] LABS: BACTERIA-REFLEX None Seen /HPF (None Seen); CASTS None Seen /LPF (None Seen); CRYSTALS None Seen /LPF (None Seen); MUCUS None Seen strn/LPF (None Seen); URINE RBC >20 Many /HPF (0-2); URINE WBC-REFLEX 0-5 Rare /HPF (0-5)
[2018-11-08 04:00] VITALS: BP 149/88
[2018-11-08 04:35] LABS: CALCIUM 8.6 mg/dL (8.5-10.1); CREATININE 1.2 mg/dL (0.6-1.3); POTASSIUM 4.2 mmol/L (3.5-5.1)
[2018-11-08 07:30] VITALS: BP 133/65
--- NOTE | 2018-11-08 08:04 | NUR ---
PT CARE ASSUMED AT 1930. SAT MAINTAINED IN O2. PT IS CONFUSED AND FORGETFUL AT TIMES BUT EASILY RIDIRECTABLE. SUPRAPUBIC CATHETER PLACED BY UROLOGY. SECURED WITH FOAM DRESSING. THIS AM PT WAS RESTLESS, CATHETER SEEN IN THE FLOOR BY THE CONNECTION WORKER, INFORMED THIS NURSE. ACCORDING TO THE DAUGHTER AT BEDSIDE, SHE MIGHT HAVE PULLED THE CATHETER OUT SHE WAS UNCOMFORTABLE. THE DAUGHTER THINKS SHE DIDNT DO IT ON PURPOSE. PT'S DAUGHTER, THIS NURSE AND NURSE ARISTIDES TRIED STRAIGHT CATHING HER, MET RESISTANCE, NO SUCCESS. BLADDER SACNNED WHICH SHOWED 480ML. DENIES PAIN. CALL LIGHT WITHIN REACH AND BED IN LOW POSITION. HOURLY ROUNDING DONE FOR PT SAFETY.
[2018-11-08] MEDS ORDERED: HYDROCODON-ACE1 EAC7 PO (09:37)
[2018-11-08] MEDS ORDERED: VOLTAREN GEL 1100 G1 TOP (09:37)
[2018-11-08] MEDS ORDERED: TRAMADOL 50 MG50 MG PO (09:37)
--- NOTE | 2018-11-08 10:00 | NUR ---
PREMIUM CARD CANCELLATION CLERK INFORMED THAT THE PATIENT IS IN NEED OF TRANSFER TO [facility]. PHYSICIAN REQUESTING TRANSFER: DR GRULLON. 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 TYPE OF BED: TELE. FACILITY: [facility]. D/C COPY CHASER SPOKE TO JESU WITH TRANSFER TEAM TO INFORM OF THE NEED TO TRANSFER THE PATIENT. JESU REQUEST THAT PATIENT'S FACESHEET, ENITRE CHART (INCLUDING CONSULTS, VITALS, AND CONSULTS, AND MAR) BE FAXED, AND ALL IMAGING UPLOADED TO THE CLOUD. D/C COPY CHASER FAXED ALL REQUESTED INFO AND INFORMED RADIOLOGY OF THE NEED TO UPLOAD ALL IMAGES TO THE CLOUD FOR TO ACCESS. D/C COPY CHASER WILL REMAIN AVAILABLE TO ASSIST AND FOLLOW NEEDED. TRANSFER TEAM PHONE: [phone] FAX: [phone]
[2018-11-08 11:49] VITALS: BP 114/54
[2018-11-08 15:58] VITALS: BP 114/54
== END 2018-11-08 16:45 | DRG 480 ==
LOC: M.ERS 22:18 → M.TBA-ER 23:54 → M.2W 23:54
PROVIDERS: Emergency Medicine; Internal Medicine Cardiovascular Disease; ADMIT Internal Medicine
PROC: 0QS604Z Reposition Right Upper Femur with Internal Fixation Device, Open Approach (ICD-10-PCS; principal; 2018-11-05)
DX: M80.051A Age-related osteoporosis with current pathological fracture, right femur, initial encounter for fracture (principal); N17.0 Acute kidney failure with tubular necrosis; I50.22 Chronic systolic (congestive) heart failure; I48.1 Persistent atrial fibrillation; I42.9 Cardiomyopathy, unspecified; I13.0 Hypertensive heart and chronic kidney disease with heart failure and stage 1 through stage 4 chronic kidney disease, or unspecified chronic kidney disease; N99.538 Other complication of continent stoma of urinary tract; S72.142A Displaced intertrochanteric fracture of left femur, initial encounter for closed fracture; N18.3 Chronic kidney disease, stage 3 (moderate); I25.10 Atherosclerotic heart disease of native coronary artery without angina pectoris; K21.9 Gastro-esophageal reflux disease without esophagitis; I95.9 Hypotension, unspecified; D50.0 Iron deficiency anemia secondary to blood loss (chronic); R33.9 Retention of urine, unspecified; Z95.1 Presence of aortocoronary bypass graft; Z85.41 Personal history of malignant neoplasm of cervix uteri; Z86.73 Personal history of transient ischemic attack (TIA), and cerebral infarction without residual deficits; I25.2 Old myocardial infarction; Z88.6 Allergy status to analgesic agent; Z91.041 Radiographic dye allergy status; Z90.710 Acquired absence of both cervix and uterus; Z82.49 Family history of ischemic heart disease and other diseases of the circulatory system; Z79.899 Other long term (current) drug therapy; Z79.82 Long term (current) use of aspirin; W18.39XA Other fall on same level, initial encounter; Y93.89 Activity, other specified; Y92.89 Other specified places as the place of occurrence of the external cause; Y99.8 Other external cause status

== ENCOUNTER 2018-11-08 14:58 | Inpatient (IN) | payer MEDICARE ==
[~2018-11-08] VITALS: Ht 152.4 cm; Wt 55.9 kg
[~2018-11-08 14:58] MED LIST changes: +CALCIUM CITRAT1 EAC7 PO; +FUROSEMIDE 40 M40 M1 PO; +HYDROCODON-ACE1 EAC7 PO; +POTASSIUM20 PO; +SPIRONOLACTONE25 M1 PO; +TRAMADOL 50 MG50 MG PO; +VITAMIN D250000 UNIT PO; +VOLTAREN GEL 1100 G1 TOP
[2018-11-08 16:45] VITALS: BP 144/75
--- NOTE | 2018-11-08 16:45 | NUR ---
ADMIT REHAB NOTE - PT ADMITTED TO [facility]-REHAB AT THIS TIME. REPORT REC FROM PAULINE WEINBERG. FAMILY PRESENT AT BEDSIDE. RLQ UROSTOMY PRESENT TO DD. LEFT HIP DRSG C/D/I. PT ORIENTED TO CALL LIGHT AND SURROUNDINGS. WILL CONTINUE TO MONITOR.
--- NOTE | 2018-11-08 19:06 | NUR ---
PT SCHEDULED FOR [facility] UROLOGY APPT 11/12/18 AT 8:45AM. [facility] MAIN BUILDING, 2ND FLOOR, POD 2A PAULINE BERGMAN [phone]
[2018-11-08 20:00] VITALS: BP 128/47
[2018-11-09 04:40] LABS: HEMATOCRIT 30.6 % (37.0-47.0); HEMOGLOBIN 10.1 gm/dL (12.0-15.0); MCH 29.9 pg (26.0-34.0); MCHC 33.1 g/dL (28.0-37.0); MCV 90.3 fL (80.0-100.0); MPV 9.1 fl. (7.2-11.1); RBC 3.39 mil/uL (4.20-5.00); RDW-CV 15.2 % (10.5-14.5); WBC 7.8 thou/uL (4.0-11.0)
[2018-11-09 04:48] LABS: CREATININE 1.1 mg/dL (0.6-1.3); POTASSIUM 3.9 mmol/L (3.5-5.1)
--- NOTE | 2018-11-09 07:45 | NUR ---
ALERT AND ORIENTED TO SELF ONLY. CONFUSED AND FORGETFUL. LEFT HIP ORIF. WBAT LLE. DRESSING SATURATED WITH SEROUS DRAINAGE AND WAS REMOVED BY PT AND SO THIS WAS CHANGED. THIGH TEDS REMOVED OVERNIGHT. PT DENIED ANY NEED FOR PAIN MEDS. RLQ ABD UROSTOMY WITH VALLEJO CATH BAG IN PLACE. AT MIDNITE, POOR OUTPUT NOTED AND SO WAS IRRIGATED WITH 60 CC NS. HAD 675 CC BLOOD TINGED URINE SOON AFTER. THIS WAS EMPTIED. REST OF NIGHT STILL HAD POOR OUTPUT AND SO CATHETER IRRIGATED AGAIN AT 0400 AND HAD 300 CC BLOODY/MUCOUS URINE OUTPUT. CATHETER SEEMED TO PERFORM BETTER AFTER IRRIGATIONS. ATTEMPTED TO BLADDER SCAN BUT ONLY SHOWING 0 CC. DAUGHTER STAYED OVERNIGHT. PT WAS RESTLESS AND SO SLEPT LITTLE. DR VASQUEZ CONSULTED AND INFORMED OF HEMATURIA AND IRRIGATIONS. BED ALARM ON AND CALL LIGHT IN REACH.
[2018-11-09 09:04] VITALS: BP 119/57
--- NOTE | 2018-11-09 12:36 | NUR ---
Nutrition: Pt admitted to Rehab with Rt hip FX. Wt: 125# and 131# - likely a difference in standing vs bed wts. Will follow wt trends. H/o CHF, GERD, afib, CKD III. 2gm Na diet ordered. B12, lasix. BG 130, albumin 2.9. Has urostomy. Going to [facility] for uro-revision. Will follow labs, diet order, po intake, wt. 11/14/18.
--- NOTE | 2018-11-09 14:08 | NUR ---
SW met with pt and pt son and a pt dtr to complete initial assessment, introduce self, and SW role on inpt rehab unit. Pt lives at home with 24/10 family care/assistance/supervision. Pt dtr Glory said that so far, the children have a schedule arranged through the but also indicated that she was not certain how much longer they will be able to provide cares for pt/indicating that there was difficulty with caregiver burden. Pt has RW, wc, chair lift. Pt on blood thinner. Pt has appt at on Sunday 11/12 at 8:45 am; SW called [employer] and arranged ride for Monday. Should arrive to crop picker pt around 6:30 am, but if not, please call to check on ride: [phone]. [employer] [facility] to return pt after pt appt. Pt son Rivera is DPOA and will be main contact [phone], dtr Glory [phone]. SW to continue to follow to assist with safe dc planning.
--- NOTE | 2018-11-09 17:02 | NUR ---
PT AMBULATES WITH QUEING , WALKER, ASSIST OF 1 WITH GAITBELT.PT UP TO RECLINER AND HAS AMBULATED TO BATHROOM ATEMPTED TO HAVE BM WITH PASSING FLATUS ONLY. VALLEJO TO UROSTOMY DRAINING INTO VALLEJO BAG WITH ADEQUATE OUTPUT.URINE REMAINS BLOOD TINGED WITH MUCOS PRESENT.VALLEJO WAS IRRIGATED BY THIS NURSE THIS AM AND BY [facility] NURSE THIS AFTERNOON. DRESSING TO LT HIP CHANGED DUE TO LARGE SEROUS DRAINAGE WITH DRESSING COMMING LOOSE.NEERU INTACT WITH NO REDNESS OF INCISION LINES.PT IS ALERT BUT OCCASIONALLY HAS TROUBLE FINDING WORDS AND IS FORGETFULL. DAUGHTER IN ROOM.
[2018-11-09 19:33] VITALS: BP 146/72
--- NOTE | 2018-11-09 23:56 | NUR ---
ASSUMED CARE AT 1914. PATIENT RESTED IN RECLINER UNTIL 2044. HAD VISITORS. UP WITH MAX ASSIST, GAIT BELT, WALKER, MUCH CUEING. NEEDS HELP GETTING BOTH LEGS INTO BED. TAKES PILLS ONE AT A TIME WITH ENSURE. UROSTOMY C/D/I, VALLEJO INTACT, WITH TWO STATLOCKS. VALLEJO FLUSHED WITH 60 ML NS. RETURNED 300 PINK URINE WITH SEDIMENT. FAMILY STATES THEY IRRIGATE UROSTOMY EVERY FOUR HOURS DURING THE DAY AND A COUPLE OF TIME THROUGH THE NIGHT. TURNS SELF. FAMILY STAYING THE NIGHT. DENIES PAIN, AND REFUSED PAIN MED AT DESPITE EDUCATION. HOURLY ROUNDS CONTINUE. BED ALARM ON. CALL LITE IN REACH.
--- NOTE | 2018-11-10 02:23 | NUR ---
0140 AWOKE, REMOVED CLOTHING AND WAS "PICKING IN THE AIR" REPORTED BY DAUGHTER. PATIENT CONFUSED. DAUGHTER REPLACED HER CLOTHING BY THE TIME THIS NURSE ENTERED THE ROOM. THIS NURSE IRRIGATED HER CATHETER WHILE SHE WAS AWAKE. GOT 150 ML OF PINK URINE, VERY LITTLE SEDIMENT. ATTEMPTED TO GIVE BENADRYL, PATIENT WOULD NOT TAKE IT AND KEPT ASKING, "WHAT IS GOING ON?" UNABLE TO REORIENT TO SITUATION DESPITE LIFTING WINDOW BLINDS TO SHOW IT WAS NIGHTTIME AND TURNING OFF ROOM LIGHTS. DAUGHTER TURNED ON TV, AND AFTER A FEW MINUTES PATIENT WAS SNORING ASLEEP AT 0230. HOURLY ROUNDS CONTINUE. BED ALARM ON. CALL LITE IN REACH. VALLEJO TO UROSTOMY TO DD.
[2018-11-10 05:05] VITALS: BP 137/58
--- NOTE | 2018-11-10 05:15 | NUR ---
SLEPT OFF AND ON. RETURNED TO SLEEP AFTER PREVIOUSLY MENTIONED EPISODE, WATCHING TV WAS HELPFUL. REQUESTED TO TURN TO RT SIDE. PILLOW BETWEEN LEGS. DSSG INTACT. HAD LARGE HARD BM PER BSC. AFTER BM, VALLEJO DRAINING MORE URINE PER CATH/UROSTOMY. URINE DARKER PINK AFTER BM. PATIENT HAD TO BE INSTRUCTED REPEATEDLY NOT TO STRAIN AT STOOL, BUT SHE STILL STRAINED. DENIES PAIN. RETURNED TO SLEEP AFTER BM. DTR AT BEDSIDE. HOURLY ROUNDS CONTINUE. BED ALARM ON. CALL LITE IN REACH.
[2018-11-10 08:06] VITALS: BP 134/67
--- NOTE | 2018-11-10 15:46 | NUR ---
ASSUMMED CARE OF PT AT 0730, PT ALERT, FORGETFUL, TRANSFERS WITH MOD/MIN ASSIST, GB WALKER CUEING, TAKING FOOD WELL, NEEDS ENCOURAGEMENT TO DRINK FLUIDS, COMPLAINS OF PIN IN LEFT HIP/GROIN, MEDICATED X 1 PER ORDER, UROSTOMY DRAINING PINK/TEA COLORED URINE, IRRIGATED EVERY 4 HOURS PER ORDER, DRESSING TO LEFT HIP INTACT, PARTICIPATED IN ALL THERAPIES, HOURLY ROUNDING COMPLETED, ASSESSMENT COMPLETE, WILL CONTINUE TO MONITOR.
[2018-11-10 20:00] VITALS: BP 111/44
--- NOTE | 2018-11-10 20:00 | NUR ---
SITTING UP IN RECLINER WATCHING CHIEF'S FOOTBALL GAME ON TV. DENIES DISCOMFORT. GRANDDAUGHTER SITTING WITH PATIENT AND PLANS TO SPEND THE NIGHT. CALL LIGHT WITHIN REACH. VALLEJO TO DEPENDENT DRAINAGE WITH RED DRAINAGE.
--- NOTE | 2018-11-11 06:14 | NUR ---
WENT TO BED ABOUT 2229 AFTER THE CHIEF'S GAME WAS OVER. IN GOOD SPIRITS SINCE THE CHIEFS WON. RESTED SOUNDLY ALL NIGHT. A FEW SMALL CLOTS NOTED THIS MORNING AFTER IRRIAGATING THE BLADDER. URINE DUMPED BEFORE BLADDER IRRIGATION THIS MORNING WAS TEA COLORED. AFTER IRRIGATING THE URINE WAS MEDIUM RED. GRANDDAUGHTER SLEPT ON A COT CLOSE TO PATIENT'S BED ALL NIGHT. CALL LIGHT WITHIN REACH. HOURLY ROUNDING IN PROGRESS.
[2018-11-11 07:57] VITALS: BP 133/61
--- NOTE | 2018-11-11 17:06 | NUR ---
ASSUMMED CARE OF PT AT 0730, PT ALERT, FORGETFUL, TRANSFERS WITH ASSIST OF 1-2 GB WALKER, FREQUENT CUEING, PT DENIES NEED FOR PAIN MEDICATION THIS SHIFT, UROSTOMY IRRIGATED EVERY 4 HOURS WITH TEA COLORED TO BLOODY URINE OUT, PT ENCOURAGED TO DRINK FLUIDS, 3 BM THIS SHIFT ON COMMODE WITH SMALL AMOUNTS OF HARD STOOL EACH TIME, STOOL SOFTENER GIVEN, SUPPOSITORY AND ENEMA OFFERED BUT PT REFUSED AT THIS TIME, PT UP IN CHAIR ALL SHIFT, TO DININGROOM FOR LUNCH BUT REFUSE TO EAT STATING SHE WAS TOO TIRED, DID FEEL BETTER THIS PM AND HAS TAKEN SOME FLUIDS, PT ENCOURAGED TO EAT, FAMILY HERE ALL SHIFT, DRESSING HAD MODERATE AMOUNT OF DRAINAGE AND LOOSE, CHANGED X 1 THIS SHIFT, TEDS ON, PT TACHYCARDIC, DR CADENA INFORMED, ORDER OBTAINED, ASSESSMENT COMPLETE, WILL CONTINUE TO MONITOR.
[2018-11-11 20:00] VITALS: BP 119/64
--- NOTE | 2018-11-12 02:14 | NUR ---
ASSUMED CARE AT 1930. PATIENT RESTING IN BED. DAUGHTER SPENDING THE NIGHT. PATIENT TURNS SELF. UP WITH MAX ASSIST, GAIT BELT, WALKER, NEEDS HELP GETTING BOTH LEGS INTO BED. HAD HARD BM PER BSC AT BEGINNING OF THE SHIFT. NEEDS HELP ADJUSTING CLOTHING AND HYGIENE. VALLEJO TO UROSTOMY CONTINUES. IRRIGATED WITH 60 ML STERILE WATER, TOLERATED WELL, DRAINED 400 ML OF RED TINGED URINE. VALLEJO SECURED WITH TWO STAT LOCKS. TAKES PILLS WHOLE WITH ENSURE. DAUGHTER REQUESTS THAT HER UROSTOMY BE IRRIGATED AROUND 0530 BECAUSE THE UROLOGISTS LIKE TO HAVE SOME URINE PRESENT THEY SCAN HER UROSTOMY. NO C/O PAIN. HOURLY ROUNDS CONTINUE. BED ALARM ON, CALL LITE IN REACH.
--- NOTE | 2018-11-12 05:09 | NUR ---
SLEPT MOST OF THE NIGHT UNTIL ABOUT 0500. WANTING TO GET UP, WILL WASH UP A BIT AND CHANGE INTO CLOTHES. DAUGHTER AND PATIENT WANT PATIENT IN CHAIR UNTIL READY FOR APPOINTMENT. WILL IRRIGATE ILEOCONDUIT PER HER REQUEST AROUND 0530. NO C/O PAIN. HOURLY ROUNDS CONTINUE. BED ALARM ON. CALL LITE IN REACH.
--- NOTE | 2018-11-12 06:35 | NUR ---
PATIENT WASHED HER FACE, AXILLA AND MAYDA AREA. ASSISTED WITH CLOTHING, WEARING OMAYRA HOSE BILAT, AND NURSING ASSISTED. READY FOR TRANSPORT, WAS DRESSED AT 0600 BUT DECICDED TO CHANGE INTO LOOSER CLOTHES AT 0630. HAVING TEA AND COOKIES, WHICH IS WHAT SHE WANTED FOR BREAKFAST. WILL MEDICATE WITH APAP PRIOR TO LEAVING FOR APPOINTMENT.
[2018-11-12 08:26] VITALS: BP 112/54
--- NOTE | 2018-11-12 16:58 | NUR ---
PT HAS BEEN TO UROLOGY APPOINTMENT AT THIS AND RETURNS WITHOUT VALLEJO. DAUGHTER ACCOMPANIED HER AND REPORTS SHE MAY START ST CATHING PER HER HOME ROUTINE. PT HAPPY TO BE DOING THIS AGAIN. PT IS ENCOURAGED TO DRINK PO FLUIDS FOR GOOD OUTPUT. PRN FOR LT HIP PAIN GIVEN WITH GOOD EFFECT THIS AFTERNOON.PT IS ALERT BUT FORGETFULL.PT HAS EATEN LUNCH IN DINNINGROOM.DAUGHTER AT BEDSIDE.
[2018-11-12 19:38] VITALS: BP 105/55
--- NOTE | 2018-11-13 07:08 | NUR ---
ALERT AND ORIENTED. PLEASANT. FORGETFUL AT TIMES. WBAT LLE. DRSG TO LEFT LEG CHANGED DUE TO SATURATION. TYLENOL GIVEN FOR LEFT LEG PAIN. MIN ASSIST GAIT BELT AND WALKER. THIGH TEDS REMOVED OVERNIGHT. RN ASSISTED PT WITH STRAIGHT CATH AT MIDNIGHT AND 0630. TOTAL 875 CC OF TEA COLORED/BLOODY/MUCOUS URINE. SLEPT OFF AND ON. CALL LIGHT IN REACH AND BED ALARM ON.
[2018-11-13 07:26] VITALS: BP 126/72
--- NOTE | 2018-11-13 17:46 | NUR ---
PT HAS WORKED WITH THERAPIES AND AMBULATES WITH WALKER,GAITBELT AND MIN ASSIST OF 1. PT EATING SUPPER IN DINNINGROOM TONIGHT WITH FAMILY. PT WAS ASSISTED WITH ST CATH AT 1130 WITH 300ML RETURN AND AT 1700 THIS EVENING WITH 650ML. PT WAS ABLE TO YSE OWN CATHETER WITH STANDING AND PERSISTANCE THIS EVENING. PT IS ASSISTED WITH HOLDING GRADUATE AND HANDING OTHER SUPPLIES. PT STARTED ON MIRALAX AND COLACE BID HAVING HAD SMALL HARD FORMED BM THIS AM.PAIN WELL CONTROLLED WITH PLAIN TYLENOL. PT REMAINS ALERT AND ORIENTATED. DRESSING TO LT HIP DRY AND INTACT. COPY OF PAPERS FROM UROLOGY OFFICE COPIED AND PLACED ON CHART WHICH DAUGHTER HAD.
[2018-11-13 20:00] VITALS: BP 133/64
--- NOTE | 2018-11-14 05:56 | NUR ---
ALERT AND ORIENTED. PLEASANT. FORGETFUL AT TIMES. TYLENOL GIVEN FOR LEFT LEG PAIN. DRSG TO LEFT HIP INTACT. RN ASSISTED PT WITH STRAIGHT CATH X 2 VIA UROSTOMY. URINE OUTPUT STILL BLOODY TINGED WITH MUCOUS MIXED. STOMA SITE COVERED WITH GAUZE. MIN ASSIST WITH GAIT BELT AND WALKER. SLEPT MOST OF THE NIGHT. CALL LIGHT IN REACH AND BED ALARM ON.
[2018-11-14 07:32] VITALS: BP 115/51
--- NOTE | 2018-11-14 11:01 | NUR ---
Nutrition: follow up note. Pt now self-cathing. Had small, hard BM - colace was ordered. Wt stable, 123#. Fair appetite/intake. No new albumin recorded. Consider Mild risk. Will follow weekly on rehab unit.
--- NOTE | 2018-11-14 15:25 | NUR ---
BC and Dr Liu met with pt to review team conference summary and plan for pt to remain on rehab at least another week with plan for team to reassess pt length of stay next Tuesday 11/21. Pt resting in chair and was okay with plan; pt did not know what month it was and pt had lunch in front of her but said she was not hungry. BC called pt dtr Glory and reviewed team conference summary and plan; pt dtr in agreement with plan and did not have questions at this time; was concerned about how long pt would be able to remain on rehab unit and wants pt to be able to improve as much as possible. SW explained length of stay and that team would be able to provide more details and recommendations after next Monday team conference. SW to continue to follow to assist with safe dc planning.
--- NOTE | 2018-11-14 16:32 | NUR ---
PT HAS BEEN PLEASANT AND COOPERATIVE, FATIGUED THROUGHOUT THE DAY. UROLOGIST HERE THIS AFTERNOON AND INSTRUCTED HER DO THE STRAIGHT CATH HERSELF. URINE IS AMBERED, PO FLUID INTAKE ENCOURAGED. PT STANDS WITH MIN ASSIST, REQUIRES PROMPTS AND IS AMBULATORY WITH GAIT BELT AND WALKER. PRN TRAMADOL AND HYDROCODONE EACH GIVEN ONCE FOR C/O HIP PAIN, ADEQUATE PAIN RELIEF ACHEIVED. FALL PRECAUTIONS AND HOURLY ROUNDING CONTINUE.
[2018-11-14 20:08] VITALS: BP 126/72
--- NOTE | 2018-11-14 20:10 | NUR ---
SITTING UP IN RECLINER BUT TECHNICAL COMMUNICATION TEACHER ASSISTING PATIENT WITH GETTING READY FOR BED. PAIN MED GIVEN FOR COMPLAINT OF LEFT HIP PAIN RATED "8". CALL LIGHT AND TV REMOTE WITHIN REACH.
--- NOTE | 2018-11-15 05:57 | NUR ---
PATIENT SLEPT VERY LITTLE. STATES GOOD RELIEF WITH PAIN MED. JUST COULDN'T SLEEP. PATIENT WAS GIVEN MELATONIN LAST NIGHT. STRAIGHT CATH WAS DONE AT 2105 AND ALSO IRRIGATED THE BLADDER. STRAIGHT CATH DONE AGAIN AT 0515. HOURLY ROUNDING IN PROGRESS.
[2018-11-15 07:39] VITALS: BP 137/77
--- NOTE | 2018-11-15 08:46 | NUR ---
I have reviewed the documentation by PAT KOHLER from 11/13/18 to 11/15/18 and I concur with it. YESSI WEBER
--- NOTE | 2018-11-15 09:44 | NUR ---
PT C/O INCREASED PAIN TO LT HIP. MADE AWARE WITH ORDER TO CALL TO [facility],CALL PLACED.
--- NOTE | 2018-11-15 17:32 | NUR ---
PT HAS PARTICIPATED WITH THERAPIES AND AMBULATES WITH WALKER AND GAITBELT AND MIN ASSIST OF 1. PT HAS HAD C/O INCREASED LT HIP PAIN EARLIER TODAY AND IS GIVEN PRN TRAMADOL THIS AM AND PLAIN TYLENOL THIS AFTERNOON WITH FAIR EFFECT. 'S OFFICE NOTIFIED OF PAIN FROM YESTERDAY AND TODAY WITH X-RAY TAKEN THIS AFTERNOON PER .PT HAS NAPPED THIS AFTERNOON WITH FEET ELEVATED. DRESSING INTACT TO LT HIP WITH DRAINAGE CONTAINED INTO DRESSING.PT HAS ST CATHED SELF THIS AFTERNOON WITH URINE CAFETERIA ASSISTANT PINK AND CLEARER.PT DRINKING MORE FLUIDS.PT REMAINS ALERT AND ORIENTATED.
[2018-11-15 19:51] VITALS: BP 114/56
--- NOTE | 2018-11-16 05:37 | NUR ---
ASSUMED PATIENT CARE AT 1930. ALERT AND ORIENTED X4, POLITE AND COOPERATIVE WITH CARES. WBAT TO LLE. DRESSING TO LEFT HIP INTACT BUT CONTAINS DRAINAGE. PT PERFORMED OWN STRAIGHT CATH TWICE WITH SBA. URINE DARK YELLOW WITH MUCOUS. SLEPT MOST OF NIGHT. CALL LIGHT WITHIN REACH. BED ALARM ON FOR SAFETY. HOURLY ROUNDING IN PROGRESS.
[2018-11-16 08:00] VITALS: BP 136/66
--- NOTE | 2018-11-16 17:04 | NUR ---
ASSUMMED CARE OF PT AT 0730, PT ALERT AND ORIENTED, TRANSFERS WITH MIN ASSIST GB WALKER, PT COMPLAINS OF LEFT HIP PAIN BUT HESITANT TO TAKE PAIN MEDICATION, PT DID AGREE TO TAKE PAIN PILL PRIOR TO AFTERNOON THERAPY, TAKING FLUIDS WELL, APETITE DECREASED AND NEEDS ENCOURAGEMENT TO EAT, DRESSING HAS LARGE AMOUNT OF DRAINAGE, ORTHO RESIDENT SAW PT AND PLACED PROVENA WD DRESSING TO LEFT HIP, PT ST CATHED THRU UROSTOMY WITH ADEQUATE AMOUNT OF YELLOW, MUCOSY URINE OUT, PARTICIPATED IN ALL THERAPIES, HOURLY ROUNDING COMPLETED, ASSESSMENT COMPLETE, WILL CONTINUE TO MONITOR.
[2018-11-16 20:00] VITALS: BP 116/65
--- NOTE | 2018-11-17 05:15 | NUR ---
ASSUMED PT CARE AT 1930. PT ALERT AND ORIENTED, POLITE AND COOPERATIVE WITH CARES. UP WITH GAIT BELT AND WALKER TO BATHROOM, STOOL X1 THIS SHIFT. PT DENIED PAIN. PROVENA WOUND DRESSING TO LEFT HIP INTACT. PT STRAIGHT CATHED HERSELF WITH SETUP ASSIST THROUGH UROSTOMY, YELLOW, MUCOUSY URINE OBTAINED. USES CALL LIGHT APPROPRIATELY. BED ALARM ON FOR SAFETY. HOURLY ROUNDING IN PROGRESS, WILL CONTINUE TO MONITOR.
[2018-11-17 07:40] VITALS: BP 121/66
--- NOTE | 2018-11-17 17:11 | NUR ---
PATIENT UP IN CHAIR THIS SHIFT, WAFFLE CUSHION IN PLACE AND REPOSITIONED IN CHAIR. PROVENA REMAINS IN PLACE TO LEFT HIP, NO DRAINAGE NOTED. PRN TRAMADOL GIVEN FOR LEFT HIP PAIN THIS AM WITH GOOD RELIEF NOTED. PATIENT STRAIGHT CATHED X 2 THIS SHIFT, URINE NOTED TO BE YELLOW WITH MUCOUS. PATIENT STATED SHE NORMALLY URINATES MORE AT HOME THAN SHE HAS BEEN WHILE HERE. PATIENT STATED SHE DIDNT THINK SHE WAS DRINKING VERY MUCH, FREQUEST PO FLUIDS ENCOURAGED. SMALL BM NOTED THIS AM PRIOR TO CATHING. UP WITH SBA, GAIT BELT AND WALKER.
[2018-11-17 20:00] VITALS: BP 121/60
--- NOTE | 2018-11-18 05:18 | NUR ---
ASSUMED PT CARE AT 1930. PT ALERT AND ORIENTED X4, POLITE AND COOPERATIVE WITH CARES. PT SITTING UP IN RECLINER WATCHING TELEVISION AT SHIFT CHANGE. PT SELF CATHED X2 THIS SHIFT. PT ENCOURAGED TO INCREASE PO INTAKE OF LIQUIDS. PT SLEPT WELL OVERNIGHT. TRANSFERS WITH SBA, GAIT BELT AND WALKER. USES CALL LIGHT APPROPRIATELY. CALL LIGHT AND FREQUENTLY USED ITEMS WITHIN REACH. BED ALARM ON FOR SAFETY. HOURLY ROUNDING IN PROGRESS, WILL CONTINUE TO MONITOR.
[2018-11-18 08:12] VITALS: BP 141/57
[2018-11-18 08:45] VITALS: BP 141/61
[2018-11-18 13:40] VITALS: BP 75/54
[2018-11-18 13:45] VITALS: BP 79/49
[2018-11-18 14:00] VITALS: BP 100/40
[2018-11-18 14:10] VITALS: BP 97/54
[2018-11-18 14:22] LABS: ABSOLUTE BASOPHILS 0.1 thou/uL (0.0-0.2); ABSOLUTE EOSINOPHILS 0.1 thou/uL (0.0-0.7); ABSOLUTE LYMPHOCYTES 1.7 thou/uL (0.8-5.3); ABSOLUTE MONOCYTES 0.7 thou/uL (0.0-1.2); ABSOLUTE NEUTROPHILS 5.2 thou/uL (1.6-8.1); BASOPHILS 1.1 %; EOSINOPHILS 1.8 %; HEMATOCRIT 32.1 % (37.0-47.0); HEMOGLOBIN 10.4 gm/dL (12.0-15.0); LYMPHOCYTES 21.7 %; MCH 31.1 pg (26.0-34.0); MCHC 32.3 g/dL (28.0-37.0); MCV 96.2 fL (80.0-100.0); MPV 8.7 fl. (7.2-11.1); NUCLEATED RBCS 0 /100WBC; PLATELET COUNT* 278 thou/uL (150-400); POLYS 66.4 %; RBC 3.33 mil/uL (4.20-5.00); RDW-CV 18.4 % (10.5-14.5); WBC 7.9 thou/uL (4.0-11.0)
[2018-11-18 14:29] LABS: ANION GAP 10 mmol/L (7-16); BUN 26 mg/dL (7-18); CALCIUM 8.8 mg/dL (8.5-10.1); CHLORIDE 100 mmol/L (98-107); CO2 27 mmol/L (21-32); CREATININE 1.4 mg/dL (0.6-1.3); GLUCOSE 196 mg/dL (70-99); POTASSIUM 4.9 mmol/L (3.5-5.1); SODIUM 137 mmol/L (136-145)
[2018-11-18 14:30] LABS: APTT 25.7 Seconds (25.0-31.3); INR 1.1; PROTIME 11.3 Seconds (9.20-11.50)
--- NOTE | 2018-11-18 14:36 | NUR ---
ASSUMMED CARE OF PT AT 0730, PT ALERT, FORGETFUL, PT TRANSFERS WITH MIN ASSIST GB WALKER, UP IN CHAIR FOR BREAKFAST, APETITE POOR, NEEDS ENCOURAGEMENT TO EAT, DOES DRINK ENSURE WITH ENCOURAGEMENT, PT DENIES PAIN THIS AM, VSS, 141/57 PULSE 61, PROVENA DRESSING INTACT TO LEFT HIP, AMBULATED TO BATHROOM WITH GB AND WALKER AND HAD LARGE BM X 1, FAMILY HER TO VISIT, ATE POORLY FOR LUNCH BUT DID DRINK ANOTHER ENSURE WITH ICE CREAM, AT 1310 WENT INTO ROOM TO HAVE PT ST CATH THRU HER OSTOMY, PT NORMALLY ST CATHS SELF WITHOUT ANY DIFFICULTY, BUT WAS SLOW AND SEEMED TO NOT UNDERSTAND HOW TO DO, NURSE ASSISTED PT TO ST CATH AND OBTAINED 200CC DIGNA URINE, PT STATED SHE WAS SOA, BP TAKEN AND 79/49, PULSE 60, O2 SAT 94%, DR SOLIS HERE AND SAW PT,PT DENIES PAIN, NAUSEA WITH DRY HEAVES X 1, DR GRULLON NOTIFIED 500CC BOLUS GIVEN, EKG DONE,BP 100/40 BP RECHECKED 97/54, RAPID RESPONSE CALLED, STEAM CONDITIONER OPERATOR NOTIFIED, EKG SHOWS BRADYCARDIC IN 30'S, PT DOES RESPOND TO NAME, LABS DRAWN, MEDS GIVEN, PT DISCHARGED TO ICU, FAMILY HERE AND AWARE OF TRANSFER.
[2018-11-18 14:38] LABS: ALBUMIN 2.7 g/dL (3.4-5.0); ALKALINE PHOSPHATASE 99 U/L (46-116); MAGNESIUM 2.2 mg/dL (1.8-2.4); SGOT 24 U/L (15-37); SGPT 29 U/L (30-65); TOTAL PROTEIN 5.9 g/dL (6.4-8.2); TROPONIN-I LEVEL <0.06 ng/mL (<0.06)
--- NOTE | 2018-11-19 17:02 | EKG ---
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 Manager: blayne : 1930 Requested By: Hira Zhou Order Number: [id number] Viry MD: Allen Guerra Measurements Intervals [place] Rate: 31 P: 0 TX: QRS: -79 QRSD: 163 T: 152 QT: 534 QTc: 384 Interpretive Statements atrial fibrillation with slow response Left bundle branch block artifact noted Baseline wander in lead(s) I,III,aVR,aVL,aVF,V1,V2,V3,V4,V5,V6 Compared to ECG 11/05/2018 08:41:47 rate slowed Electronically Signed On 11-19-2018 17:01:45 CDT by Allen Guerra [email or web address] <ELECTRONICALLY SIGNED> By: Allen Guerra MD, FAC 11/19/18 1701 1357 [id number] Allen Guerra MD, LOCATED WITHIN [facility] /EPI
== END 2018-11-18 14:33 | disposition short-term general hospital (02) | DRG 542 ==
LOC: M.REH 14:58
PROVIDERS: Internal Medicine; ADMIT Physical Medicine & Rehabilitation
DX: M80.851A Other osteoporosis with current pathological fracture, right femur, initial encounter for fracture (principal); N17.0 Acute kidney failure with tubular necrosis; I48.1 Persistent atrial fibrillation; I50.32 Chronic diastolic (congestive) heart failure; I50.22 Chronic systolic (congestive) heart failure; I42.9 Cardiomyopathy, unspecified; T83.198A Other mechanical complication of other urinary devices and implants, initial encounter; N18.3 Chronic kidney disease, stage 3 (moderate); K21.9 Gastro-esophageal reflux disease without esophagitis; I25.10 Atherosclerotic heart disease of native coronary artery without angina pectoris; I95.9 Hypotension, unspecified; D50.0 Iron deficiency anemia secondary to blood loss (chronic); R33.9 Retention of urine, unspecified; R53.81 Other malaise; N99.524 Stenosis of incontinent stoma of urinary tract; Z95.1 Presence of aortocoronary bypass graft; Z86.73 Personal history of transient ischemic attack (TIA), and cerebral infarction without residual deficits; I25.2 Old myocardial infarction; Z91.041 Radiographic dye allergy status; Z88.6 Allergy status to analgesic agent

== ENCOUNTER 2018-11-18 14:16 | Inpatient (IN) | payer MEDICARE ==
[2018-11-18] VITALS (22 sets, daily range): BP systolic 85–143; BP diastolic 31–115
[~2018-11-18] VITALS: Ht 152.4 cm; Wt 63.0 kg
--- NOTE | ~2018-11-18 | PROC ---
[address] [address] PROCEDURE REPORT Name: VIC MOON Room: [address] IN M.R.#: [id number] Admission: 11/18/18 Attend Phys: Hira Zhou MD Discharge: Date of : [birth year] Report #: [id number] THIS REPORT FOR: //name// For GI report, please see the Provation report in Perceptive 7 content. By: [id number] Records Staff SIN[facility] /SUZY
--- NOTE | ~2018-11-18 | CON ---
[address] [address] CONSULTATION Name: VIC MOON Room: [address] IN .R.#: [id number] Admission: 11/18/18 Attend Phys: Hira Zhou MD Discharge: Date of : [birth year] Report #: [id number] THIS REPORT FOR: //name// CC: Prince Zhou DATE OF SERVICE: 11/22/2018 HISTORY OF PRESENT ILLNESS: This is a pleasant 88-year-old female with past medical history significant for hypertension, coronary artery disease, CHF, EF 35%, atrial fibrillation, on chronic anticoagulation, who initially was admitted after a fall. The GI service has been consulted for evaluation of dysphagia. The patient reports she has had dysphagia ongoing for the last few weeks. She reports the trouble is with both solids and liquids, she appears to have trouble initiating a swallow. Denies any pain on swallowing. She does regurgitate esophageal contents. Occasionally, she also reports mild discomfort in the chest with difficulty of swallowing. The patient denies prior episodes of choking or aspiration. The patient denies any significant weight loss in the recent time. Additionally, the patient reports a loss of appetite beginning in September of this year. PAST MEDICAL HISTORY: As mentioned above, she has a history of coronary artery disease, hypertension, CHF, atrial fibrillation on chronic anticoagulation. PAST SURGICAL HISTORY: Coronary artery bypass grafting, urostomy stoma, hysterectomy, hip fracture status post repair. SOCIAL HISTORY: The patient denies smoking, alcohol or recreational drug use. FAMILY HISTORY: The patient denies any family history of colorectal, esophageal or gastric cancer. REVIEW OF SYSTEMS: Comprehensive 10-point review of systems is negative except for what was mentioned in the HPI. PHYSICAL EXAMINATION: VITAL SIGNS: Blood pressure 132/53, pulse rate 55, temperature 36.7. GENERAL: The patient is alert, awake, oriented x 3. HEENT: Pupils are equal, round, reactive to light and accommodation. Mucous membranes are moist. There is no congestion. LUNGS: Clear to auscultation bilaterally. CARDIOVASCULAR: Rate and rhythm regular, S1, S2 present. ABDOMEN: Soft. There is no distention, guarding or rigidity. EXTREMITIES: Warm, well perfused. There is no edema. SKIN: [place] [address] CONSULTATION Name: VIC MOON Room: [address]#: [id number] Admission: 11/18/18 Attend Phys: Hira Zhou MD Discharge: Date of : [birth year] Report #: [id number] LABORATORY DATA: Hemoglobin 9.2, hematocrit 28.9, platelet count 185, WBC count 4.8. Sodium 140, potassium 4.6, chloride 106, bicarbonate 30, BUN 33, creatinine 1.4. ASSESSMENT AND PLAN: Pleasant 88-year-old female with history outlined above, presenting with intermittent dysphagia to solids and liquids. We will proceed with EGD tomorrow. Keep the patient n.p.o. past midnight. Also recommend a video swallow study for evaluation of her swallow. Further recommendations will be based on these tests. By: [id number] Smith MD /nt
--- NOTE | ~2018-11-18 | PROC ---
[address] [address] PROCEDURE REPORT Name: VIC MOON Room: [address] IN M.R.#: [id number] Admission: 11/18/18 Attend Phys: Hira Zhou MD Discharge: Date of : [birth year] Report #: [id number] THIS REPORT FOR: //name// For GI report, please see the Provation report in Perceptive 7 content. By: [id number] Records Staff [facility] /SUZY
[2018-11-18 14:42] LABS: BE -2.2 mmol/L (-2 to +3); PCO2 41.3 mmHg (35.0-45.0); PO2 78.5 mmHg (75.0-100.0); pH 7.365 (7.340-7.450)
--- NOTE | 2018-11-18 15:00 | NUR ---
PT RECEIVED FROM REHAB AT 1430, HR 20s, BP STABLE, PT SOMNOLENT BUT GRIMACES TO PAIN. NS RUNNING WIDE OPEN. PLANNED FOR TEMPORARY PACEMAKER.
--- NOTE | 2018-11-18 17:00 | NUR ---
PT RECEIVED FROM CATH AT 1630 AFTER TEMP PACEMAKER VIA RT GROIN. PT STILL SOMNOLENT, OPENING EYES TO PAIN STIMULATION. NS AT 100 MLS/HR. ADMISSION PROCESS COMPLETED. FAMILY AT THE BEDSIDE.
--- NOTE | 2018-11-18 19:21 | CARD ---
[address] [address] CARDIAC CATH REPORT Name: VIC MOON Bucky Room: [address] IN ..#: [id number] Admission: 11/18/18 Attend Phys: Hira Zhou MD Discharge: Date of : [birth year] Report #: [id number] THIS REPORT FOR: //name// APPROVED REPORT Study performed: 11/18/2018 15:15:45 Exam: placement of a temporary pacemaker Indications: high-grade AV block The patient is a 88 year-old female with a history of high-grade AV block. Implanted Devices: A temporary pacemaker was placed via the right femoral approach. There was good capture with the tip located the right ventricular apex with a threshold of 0.8 mA. The system was left in the VVI mode, escaped rate 60, current 5 mA. The lead and sheath were sutured in position and a sterile dressing was applied. Patient was transferred to the ICU in stable condition. Conclusion #1 placement of a temporary transvenous pacing catheter via the right femoral approach without complications. <ELECTRONICALLY SIGNED> By: Alec Beltran MD, [facility] 11/18/181920 20 1921Josaniya Beltran MD, FACC /INF
[2018-11-19] VITALS (23 sets, daily range): BP systolic 89–141; BP diastolic 32–95
[2018-11-19 05:32] LABS: CALCIUM 9.5 mg/dL (8.5-10.1); CREATININE 1.4 mg/dL (0.6-1.3); POTASSIUM 5.2 mmol/L (3.5-5.1)
--- NOTE | 2018-11-19 07:16 | NUR ---
RECEIVED REPORT AND ASSUMED CARE AT 1900. VSS. MONITORING IN PLACE. BED LOCKED IN LOWEST POSITION, CALL LIGHT WITHIN REACH. ASSESSMENT COMPELTED CHARTED. HOURLY ROUNDING COMPLETED, ALL NEEDS MET. POSITION CHANGED EVERY TWO HOURS. NO ACUTE CHANGES THROUGH THE NIGHT
--- NOTE | 2018-11-19 13:17 | NUR ---
ICU rounds: Pt transferred down from acute rehab, with a HR in the 20s, suspected to be med induced. Pt is more confused than normal, sleeping alot. Pt had a temporary pacer placed, plan to monitor today with the pacer. Plan to return to [place]hab [place]. Known to this CM from her previous hospital stay. Pt normally resides at home, children have been staying with Pt at home in shifts. Pt has a walker and wc at home that she can use for mobility. No o2. No hx of HH or SNF.
[2018-11-19 13:19] LABS: URINE BILIRUBIN NEGATIVE (Negative); URINE BLOOD 3+ (Negative); URINE CLARITY CLOUDY; URINE COLOR YELLOW; URINE GLUCOSE-RANDOM NEGATIVE (Negative); URINE KETONES NEGATIVE (Negative); URINE NITRITE-REFLEX NEGATIVE (Negative); URINE PROTEIN 1+ (Negative)
[2018-11-19 13:20] LABS: URINE LEUKOCYTES-REFLEX 3+ (Negative)
[2018-11-19 13:31] LABS: SQUAMOUS NONE SEEN /LPF (0-3)
[2018-11-19 13:32] LABS: BACTERIA-REFLEX >30 Many /HPF (None Seen); CASTS None Seen /LPF (None Seen); MUCUS None Seen strn/LPF (None Seen)
[2018-11-19 13:33] LABS: CRYSTALS None Seen /LPF (None Seen)
--- NOTE | 2018-11-19 18:01 | NUR ---
TEMPORARY PACEMAKER'S RATE SET TO [address] HARO. PT ON SINUS RHYTHM WITH OCCASIONAL PACING BEATS. VSS. BM TWICE THIS SHIFT. ATE 25-30% OF HER DIET. SHE IS CONFUSED, FORGETFUL AND ATTEMPTS ON GETTING OUT OF BED, REORIENTATION PROVIDED. CATHETERIZATION AT UROSTOMY Q4 HRS. RT GROIN SITE CLEAN, DRY AND INTACT.
[2018-11-20] VITALS (7 sets, daily range): BP systolic 120–160; BP diastolic 47–76
--- NOTE | 2018-11-20 09:02 | NUR ---
RECEIVED REPORT AND ASSUMED CARE OF PT @ 5841.PT IS A/O X2,VSS,TRACING SB WITH 1ST DEGREE ON THE MONITOR.PT REMAINS ON 2L O2 NC.IV PATENT AND SALINE LOCKED.TRANS PACER AND VENOUS SHEATH REMOVED THIS AM PER ORDERS.POST SHEATH REMOVAL GROIN CHECKS COMPLETED.PT WILL BE BEDREST UNTIL NOON.LANCE SECURE AND PATENT ON LEFT HIP INCISION.PT IS CALM AND COOPERATIVE WITH NO C/O PAIN AT TIME OF ASSESSMENT.CALL LIGHT AND FALL PRECAUTIONS IN PLACE.WILL CONTINUE TO MONITOR.
--- NOTE | 2018-11-20 11:33 | NUR ---
ICU rounds: Off transpacer. Trying to wean o2, down to 1L with sats in the low 90s. Tele status. Per , Pt likely will not be an acute rehab candidate, will probably be more skilled appropriate, discussed with dtr. Continue on rocephin and zosyn for UTI and PNA.
--- NOTE | 2018-11-20 11:42 | EKG ---
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 Technician: : 1930 Requested By: Allen Guerra Order Number: [id number] Viry MD: Allen Guerra Measurements Intervals [place] Rate: 56 P: -36 ND: 230 QRS: -54 QRSD: 149 T: 131 QT: 465 QTc: 449 Interpretive Statements Sinus bradycardia Prolonged ND interval Left bundle branch block Compared to ECG 11/18/2018 13:57:19 rate increased Atrial fibrillation no longer present Electronically Signed On 11-20-2018 11:41:48 CDT by Allen Guerra [email or web address] <ELECTRONICALLY SIGNED> By: Allen Guerra MD, [facility] 11/20/18 1141 0836 0836 Allen Guerra MD, [facility] /EPI
--- NOTE | 2018-11-20 18:47 | NUR ---
VSS.SPLITTER HAND IN PLACE WITH NO CHANGES.PT REMAINS ON 1L O2 NC.PAIN MANAGED WELL WITH MEDICATIONS.IV PATENT AND SALINE LOCKED.PT WORKED WITH PT/OT.LANCE SECURE IN PLACE.HOURLY ROUNDING COMPLETED FOR PT SAFETY.CALL LIGHT AND FALL PRECAUTIONS IN PLACE.WILL CONTINUE TO MONITOR.
[2018-11-21] VITALS (7 sets, daily range): BP systolic 90–169; BP diastolic 28–69
[2018-11-21 02:47] LABS: HEMATOCRIT 28.9 % (37.0-47.0); HEMOGLOBIN 9.2 gm/dL (12.0-15.0); MCV 96.9 fL (80.0-100.0); MPV 9.1 fl. (7.2-11.1); RBC 2.98 mil/uL (4.20-5.00); WBC 4.8 thou/uL (4.0-11.0)
[2018-11-21 03:09] LABS: CALCIUM 8.3 mg/dL (8.5-10.1); CREATININE 1.4 mg/dL (0.6-1.3); MAGNESIUM 1.9 mg/dL (1.8-2.4); POTASSIUM 4.6 mmol/L (3.5-5.1)
--- NOTE | 2018-11-21 08:16 | NUR ---
PT TRANSFERED TO ROOM 229. ALL BELONGINGS SENT WITH PT. REPORT GIVEN TO PAULINE NAILS.
--- NOTE | 2018-11-21 09:08 | NUR ---
PT TRANSFERRED FROM ICU TO TELEMETRY ROOM 229 AT APPROXIMATELY 0815. PT IS ALERT & ORIENTED AND ABLE TO VOICE ALL NEEDS. PT DENEIS PAIN. SB WITH BBB ON MONITOR. PT DENIES PAIN AT THSI TIME. PT DOES C/O NAUSEA,PRN ZOFRAN GIVEN WITH SOME RELIEF. ASSESSMENT COMPLETED CHARTED. HOURLY ROUNDING AND FALL PRECAUTIONS IN PLCE FOR PT SAFETY.CLWR.
--- NOTE | 2018-11-21 11:09 | EKG ---
[place] [address] ELECTROCARDIOGRAM REPORT Name: YEN MOONEN Bucky Room: [address] ADM IN M.R.#: [id number] Admission: 11/18/18 Attend Phys: Hira Zhou MD Discharge: Date of : [birth year] Report #: [id number] THIS REPORT FOR: //name// [facility] Test Date: 2018-11-21 Test Time: 08:51:03 Pat Name: VIC MOON Department: Room: [facility] Gender: F Stock Counter: : 1930 Requested By: Floridalma Oliveros Order Number: [id number] Viry MD: Allen Guerra Measurements Intervals [place] Rate: 56 P: -46 ID: [id number] QRS: -43 QRSD: 152 T: 135 QT: 488 QTc: 472 Interpretive Statements Sinus or ectopic atrial rhythm Borderline prolonged ID interval Left bundle branch block Compared to ECG 11/20/2018 08:36:32 no change Electronically Signed On 11-21-2018 11:09:11 CDT by Allen Guerra [email or web address] <ELECTRONICALLY SIGNED> By: Allen Guerra MD, [facility] 11/21/18 1109 [id number] [id number] Allen Guerra MD, [facility] /EPI
[2018-11-22 04:00] VITALS: BP 157/59
--- NOTE | 2018-11-22 04:06 | NUR ---
ASSUMED CARE OF PT AT 1900. PT IS ALERT AND ORIENTED. VSS. PERRLA. NO COMPLAINTS OF PAIN. PT IS IN SINUS BRADYCARDIA. PT SELF CATH HER UROSTOMY. NO URINE OBTAINED. PT BLADDER SCANNED. 0 URINE IN BLADDER. PT IS SLEEPING QUIETLY IN BED. RESPIRATIONS ARE EVEN AND NONLABORED. WILL CONTINUE TO MONITOR PT.
[2018-11-22 08:00] VITALS: BP 171/71
[2018-11-22 11:00] VITALS: BP 132/53
--- NOTE | 2018-11-22 14:14 | NUR ---
DC recommendation for pt to dc to inpt rehab; SW spoke with inpt rehabilitation specialist Carli who explained that a new consult is necessary; SW spoke with pt nurse to reinitiate process for inpt rehab. SW to continue to follow to assist with safe dc planning.
[2018-11-22 16:00] VITALS: BP 164/60
--- NOTE | 2018-11-22 16:26 | NUR ---
PATINET RESTING IN BED. UP WITH ASSIST X1 AND WALKER TO BATHROOM. HOURLY ROUNDING COMPLETED FOR PATIENT SAFETY. SINUS DOROTA ON MONITOR.
[2018-11-22 18:00] LABS: HEMATOCRIT 30.5 % (37.0-47.0); HEMOGLOBIN 9.9 gm/dL (12.0-15.0); MCH 31.4 pg (26.0-34.0); MCHC 32.5 g/dL (28.0-37.0); MCV 96.6 fL (80.0-100.0); RBC 3.16 mil/uL (4.20-5.00); WBC 4.5 thou/uL (4.0-11.0)
[2018-11-22 19:40] VITALS: BP 140/59
[2018-11-23 00:22] VITALS: BP 150/57
[2018-11-23 04:00] VITALS: BP 151/92
--- NOTE | 2018-11-23 04:10 | NUR ---
ASSUMED CARE OF PT AT 1900. PT IS ALERT AND ORIENTED. VSS. PERCORNELIO. PT IS UP WITH 1. STRAIGHT CATH UROSTOMY AT 2100. PT IS IN SINUS RYTHM ON THE TELEMETRY. PT IS RESTING COMFORTABLY IN BED. RESPIRATIONS ARE EVEN AND NONLABORED. WILL CONTINUE TO MONITOR PT.
[2018-11-23 07:58] VITALS: BP 161/65
--- NOTE | 2018-11-23 11:45 | NUR ---
DC planning inpt rehab vs snf at dc; inpt rehab was reconsulted to consider pt for inpt rehab. SW to continue to follow to assist with safe dc planning.
--- NOTE | 2018-11-23 14:41 | NUR ---
I have reviewed the documentation by PAT KOHLER from TODAY to 11/23/18 and I concur with it. YESSI WEBER
[2018-11-23 16:00] VITALS: BP 133/70
[2018-11-23 17:22] VITALS: BP 163/65
--- NOTE | 2018-11-23 18:37 | NUR ---
PATINET RESTING IN BED. UP WITH ASSISX1 AND WALKER. VITAL SIGNS STABLE. HOURLY ROUNDING COMPLETED FOR PATIENT SAFETY
[2018-11-24] VITALS: BP 145/63
[2018-11-24 04:00] VITALS: BP 162/67
--- NOTE | 2018-11-24 06:02 | NUR ---
PATIENT SLEPT MOST OF THE NIGHT. IV REMAINS SALINE LOCKED. PATIENT HAD NO COMPLAINTS OF PAIN. HR REMAINS SINUS DOROTA IN THE 50'S. WILL CONTINUE TO MONITOR.
[2018-11-24 08:00] VITALS: BP 165/62
--- NOTE | 2018-11-24 11:18 | NUR ---
ASSUMED CARE OF PATIENT THIS AM AT 0730. PATIENT IS ALERT AND ORIENTED X 4. SHE C/O NAUSEA THIS AM. PATIENT MEDICATED FOR NAUSEA WITH SOME RELIEF NOTED. TELE SHOWS CONTINUED SINUS DOROTA. FAMILY IN TO VISIT. PATIENT ASSISTED UP TO THE BR AND WITH ADLS PRN. WILL CONTINUE TO MONITOR. NO FALLS OR INJURY
[2018-11-24 12:08] VITALS: BP 127/68
[2018-11-24 15:36] VITALS: BP 143/55
[2018-11-24 17:44] LABS: URINE BILIRUBIN NEGATIVE (Negative); URINE BLOOD 3+ (Negative); URINE CLARITY CLEAR; URINE COLOR YELLOW; URINE GLUCOSE-RANDOM NEGATIVE (Negative); URINE KETONES NEGATIVE (Negative); URINE LEUKOCYTES-REFLEX NEGATIVE (Negative); URINE NITRITE-REFLEX NEGATIVE (Negative); URINE PROTEIN 1+ (Negative); URINE UROBILINOGEN 0.2 E.U./dl (0.2-1.0)
[2018-11-24 17:53] LABS: SQUAMOUS 0-3 Few /LPF (0-3); URINE RBC >20 Many /HPF (0-2); URINE WBC-REFLEX 0-5 Rare /HPF (0-5)
[2018-11-24 17:54] LABS: BACTERIA-REFLEX None Seen /HPF (None Seen); CASTS None Seen /LPF (None Seen); CRYSTALS None Seen /LPF (None Seen)
[2018-11-25] VITALS: BP 129/51
[2018-11-25 04:00] VITALS: BP 135/61
--- NOTE | 2018-11-25 06:07 | NUR ---
PATIENT SLEPT MOST OF THE NIGHT. PATIENT HAD NO COMPLAINTS OF PAIN. DRESSING REMAINT TO LEFT HIP. WILL CONTINUE TO MONITOR.
[2018-11-25 08:00] VITALS: BP 152/55
[2018-11-25 11:13] VITALS: BP 169/54
--- NOTE | 2018-11-25 13:55 | NUR ---
ASSUMED CARE OF PATIENT THIS AM AT 0730. PATIENT IS ALERT AND ORIENTED X 4. SHE DENIES PAIN AND DISCOMFORT. PATIENT ASSISTED UP TO THE CHAIR THIS AM FOR BREAKFAST. HER APPETITE CONTINUES POOR BUT IMPROVED FROM YESTERDAY. NO C/O N/V TODAY. PATIENT STRAIGHT CATHED THIS AFTERNOON. SHE WANTS TO BE STRAIGHT CATHED Q 4 HR. TELE SHOWS CONTINUED SB WITH A 1DAVB. PATIENT CLEARED FOR EGD BY CARDIOLOGY. TALKED WITH DR PENALOZA AND ORDERS GIVEN TO OBTAIN CONSENT. PATIENT INSTRUCTED ON NPO.
[2018-11-25 15:32] VITALS: BP 152/53
[2018-11-25 20:00] VITALS: BP 127/61
[2018-11-26] VITALS: BP 146/52
[2018-11-26 04:00] VITALS: BP 152/53
--- NOTE | 2018-11-26 06:08 | NUR ---
PATIENT SLEPT PART OF THE NIGHT. PATIENT HAS BEEN NPO FOR EGD TODAY. IV REMAINS SALINE LOCKED. WILL CONTINUE TO MONITOR.
--- NOTE | 2018-11-26 07:15 | NUR ---
CHANGE OF SHIFT, BEDSIDE REPORT GIVEN PATIENT SEEN AT BEDSIDE, SITTING UP IN CHAIR AT BEDSIDE ASSUMED PATIENT CARE
[2018-11-26 08:00] VITALS: BP 173/63
[2018-11-26 12:56] VITALS: BP 162/60
--- NOTE | 2018-11-26 14:52 | NUR ---
CONTINUE TO FOLLOW, MET WITH PT AND 3 CHILDREN, AIDE, LENI AND JAY. DISCUSSED POSSIBLE RETURN TO REHAB WELL OTHER OPTIONS: SNF, HOME WITH HH, PRIVATE DUTY OR OTHER LIVING SITUATION AFTER THOSE SUCH ASSISTED LIVING OR LTC. GAVE RESOURCES FOR ALL. FAMILY STATED THEY HAD BEEN STAYING WITH PT 24/10 PRIOR TO ADMIT AND ARE WILLING TO CONTINUE BUT NOT WELDER FABRICATOR. HOPEFUL PT CAN RETURN TO REHAB AND THEN HOME WITH FAMILY AND HH. ALSO DISCUSSED MEDICAID AND INCOME LIMITS. SPOKE WITH ESSIE/REHAB LIASON, AWAITING DR IRMA ZULUAGA. OT TO SEE TODAY AND DR WILL GIVE ANSWER AFTER. ANTICIPATE PT WILL BE READY FOR REHAB TOMORROW PER DR SORIA
[2018-11-26 16:00] VITALS: BP 150/49
[2018-11-26 20:00] VITALS: BP 151/55
--- NOTE | 2018-11-26 20:00 | NUR ---
RECEIVED REPORT AND ASSUMED CARE OF PT, ASSESSMENT COMPLETED. PT ALERT AND ORIENTED TO NAME ONLY. PLEASANT AND COOPERATIVE. DRSG TO LT HIP DRY AND INTACT. PT ASSIST WITH REPOSITIONING IN BED. TELEMETRY ON SHOWING SR WITH 1ST AVB AND BBB. WILL CONT TO MONITOR AND ASSIST NEEDED.
--- NOTE | 2018-11-26 23:00 | NUR ---
CATH INSERTED INTO STOMA WITHOUT DIFFICULTY, NO URINE EXPELLED. IRRIGATED WITH NS WITH 170 CC, YELLOW WITH SEDIMENT URINE EXPELLED. PT ANXIOUS AND STATED SHE WAS SCARED, CALL FAMILY. SON HERE STAYING THE NIGHT. REASSURANCE GIVEN TO BOTH.
[2018-11-27] VITALS: BP 101/35
[2018-11-27 04:00] VITALS: BP 148/56
[2018-11-27 05:14] LABS: HEMATOCRIT 29.9 % (37.0-47.0); HEMOGLOBIN 9.5 gm/dL (12.0-15.0); MCH 30.9 pg (26.0-34.0); MCHC 31.8 g/dL (28.0-37.0); MCV 97.3 fL (80.0-100.0); MPV 8.7 fl. (7.2-11.1); RBC 3.08 mil/uL (4.20-5.00); RDW-CV 20.6 % (10.5-14.5); WBC 3.4 thou/uL (4.0-11.0)
[2018-11-27 05:37] LABS: ALBUMIN 2.5 g/dL (3.4-5.0); CALCIUM 8.2 mg/dL (8.5-10.1); MAGNESIUM 1.7 mg/dL (1.8-2.4); POTASSIUM 3.4 mmol/L (3.5-5.1); TOTAL BILIRUBIN 0.6 mg/dL (<0.1-1.0); TOTAL PROTEIN 5.3 g/dL (6.4-8.2)
--- NOTE | 2018-11-27 06:30 | NUR ---
AWAKE OCC DURING NIGHT. PT ORIENTED TO PERSON ONLY, SON AT BEDSIDE. NPO [place]CE [place] FOR GASTRIC EMPTYING TEST TODAY. BLADDER CATH X2, URINE OUTPUT LOW. NO CHANGE IN ASSESSMENT. HS GOALS OF REST AND SAFETY ACHIEVED. HOURLY ROUNDING OBSERVED.
[2018-11-27 08:00] VITALS: BP 150/54
[2018-11-27 11:30] VITALS: BP 156/61
--- NOTE | 2018-11-27 15:51 | NUR ---
ASSUMED PT CARE AT 0800, AOX2, UP WITH ASSIST, O2 SAT 90'S RA. TRACING SINUS DOROTA, BBB, 1ST DEGREE AV BLOCK ON TELE. PT SAYS SHE FEELS TIRED. PT HAD GASTRIC EMPTYING. PT FOR STRAIGHT CATH Q4 ON UROSTOMY. LAST BM TODAY. IV ACCESS INTACT, FLUIDS RUNNING. PT/OT ON BOARD. VSS, AM ASSESSMENT CHARTED. MEDS GIVEN PER MAR, CALL LIGHT WITHIN REACH. WILL CONTINUE TO MONITOR.
[2018-11-27 16:00] VITALS: BP 162/62
--- NOTE | 2018-11-27 16:13 | NUR ---
CONTINUE TO FOLLOW, PT HAD TESTING AND IVF TODAY. ANTICIPATE DC TO REHAB SOON.
[2018-11-27 20:00] VITALS: BP 149/55
--- NOTE | 2018-11-27 20:00 | NUR ---
RECEIVED REPORT AND ASSUMED CARE OF PT, ASSESSMENT COMPLETED. PT SITTING UP IN CHAIR VISITING WITH DGT. PLEASANT, ORIENTED X3 BUT FORGETFUL. LT HIP DRSG DRY AND INTACT. TELEMETRY ON SHOWING SR WITH BBB. ENCOURAGING PO FLUIDS. WILL CONT TO MONITOR AND ASSIST NEEDED.
[2018-11-28] VITALS (7 sets, daily range): BP systolic 106–145; BP diastolic 46–71
[2018-11-28 04:54] LABS: HEMOGLOBIN 9.6 gm/dL (12.0-15.0); MCH 32.1 pg (26.0-34.0); MPV 8.8 fl. (7.2-11.1); RBC 2.99 mil/uL (4.20-5.00); RDW-CV 20.8 % (10.5-14.5); WBC 3.4 thou/uL (4.0-11.0)
[2018-11-28 05:02] LABS: CALCIUM 8.1 mg/dL (8.5-10.1); MAGNESIUM 1.6 mg/dL (1.8-2.4)
[2018-11-28 05:13] LABS: POTASSIUM 4.6 mmol/L (3.5-5.1)
--- NOTE | 2018-11-28 06:49 | NUR ---
SLEPT WELL TONIGHT. REPOSITIONED Q 2HR. ST CATH TO ILEO STOMA X2, URINE YELLOW WITH SEDIMENT. NO COMPLAINTS VOICED TONIGHT. ASSESSMENT UNCHANGED. HS GOALS OF REST AND COMFORT ACHIEVED. HOURLY ROUNDING OBSERVED.
[2018-11-28] MEDS ORDERED: PANTOPRAZOLE SO40 M1 PO (10:12)
[2018-11-28] MEDS ORDERED: PACERONE 200 M200 M1 PO (10:12)
--- NOTE | 2018-11-28 10:46 | NUR ---
ASSUMED PT CARE AT 0800, AOX3, UP WITH ASSIST. O2 SAT 90'S RA. TRACING SB,BBB, 1ST DEGREE AV BLOCK ON TELE. PT DENIES PAIN. PT FOR DISCHARGE TO REHAB. PT OT/PT ON BOARD. PT UROSTOMY STRAIGHT CATH Q4. IV ACCESS INTACT. LAST BM TODAY. VSS, AM ASSESSMENT CHARTED. MEDS GIVEN PER MAR. CALL LIGHT WITHIN REACH, BED/CHAIR ALARM. WILL CONTINUE TO MONITOR.
--- NOTE | 2018-11-28 13:56 | NUR ---
ORDER NOTED FOR DC TO REHAB. CALLED AND FAXED TO REHAB, SPOKE WITH ESSIE. THEY WILL ACCEPT PT THIS AFTERNOON. UPDATED PT AND CHILDREN. DISCUSSED POSSIBLE RESOURCES AND PLAN AFTER DC AND GAVE INFO ALSO
--- NOTE | 2018-11-29 14:07 | CON ---
[address] [address] CONSULTATION Name: VIC MOON Room: [address] IN M.R.#: [id number] Admission: 11/18/18 Attend Phys: Hira Zhou MD Discharge: 11/28/18 Date of : [birth year] Report #: [id number] THIS REPORT FOR: //name// CC: Prince Zhou DATE OF SERVICE: 11/23/2018 REASON FOR CONSULT: History of GERD, chest discomfort, and dysphagia. HISTORY OF PRESENT ILLNESS: This is an 88-year-old female who was initially at rehabilitation after she had hip fracture repaired. She was transferred to medical unit due to bradycardia and hypotension. The patient has been followed by Cardiology and doing better. We were consulted to evaluate her GERD and upper GI symptoms. She denies odynophagia, but reports that she has a lot of phlegm in her throat with intermittent chest pain. She has been on Pepcid daily. PAST MEDICAL HISTORY: Significant for history of hip fracture, AFib, bradycardia, coronary artery disease, cardiogenic shock, ileal conduit with stromal stenosis, intertrochanteric fracture, angina, TIA, anemia, NM, chronic kidney disease, coronary artery disease, status post CABG x 5, history of cervical cancer and TIAs. ALLERGIES: Significant to MORPHINE and CONTRAST DYE. MEDICATIONS: Please refer to MAR. SOCIAL HISTORY: The patient has recently fractured hip and was in rehab until she was brought to the main hospital due to bradycardia and hypotension. FAMILY HISTORY: Noncontributory. PHYSICAL EXAMINATION: VITAL SIGNS: Reveals blood pressure of 161/65, respirations 14, pulse 57, temperature 98. LUNGS: Clear. CARDIOVASCULAR: Regular rate. ABDOMEN: Soft, nontender, nondistended. Bowel sounds are positive. NEUROLOGIC: The patient is alert, oriented x 3. LABORATORY DATA: Reveal sodium of 142, potassium 4.6, BUN is 33, creatinine 1.4, glucose 108. Liver function tests are all within normal limit. Albumin is 2.7. WBC is 4.5 with hemoglobin of 9.9 and platelet of 176. ASSESSMENT AND PLAN: The patient with history [place] [id number] CONSULTATION Name: VIC MOON Room: [address]#: [id number] Admission: 11/18/18 Attend Phys: Hira Zhou MD Discharge: 11/28/18 Date of : [birth year] Report #: [id number] disease, who complains of intermittent chest pain and dysphagia. She also is anemic with hemoglobin of 9. She denies hematochezia or melena. We will proceed with upper scope to further evaluate her upper GI. She is on anticoagulation therapy. So, we would not be dilating her esophagus. I will make further recommendation based on finding. <ELECTRONICALLY SIGNED> By: Aris Severino MD 11/29/18 1407 [id number] [id number] Severino MD /teto
--- NOTE | 2018-12-04 09:42 | CON ---
[address] [address] CONSULTATION Name: VIC MOON Room: [address] IN ..#: [id number] Admission: 11/18/18 Attend Phys: Hira Zhou MD Discharge: 11/28/18 Date of : [birth year] Report #: [id number] THIS REPORT FOR: //name// CC: Prince Zhou DATE OF SERVICE: 11/18/2018 CARDIOLOGY CONSULTATION LOCATION: The patient is in ICU bed #5. HISTORY OF PRESENT ILLNESS: The patient is a pleasant 88-year-old female who was recently hospitalized after a fall with a left femur intertrochanteric fracture. She has a history of atrial fibrillation with rapid response and chronic systolic heart failure. She was noted in the rehab facility today to demonstrate both hypotension and bradycardia with heart rates in the high 20s and blood pressure as low as 70 systolic. I was asked to see her in this context. On evaluation, she denies chest discomfort. She feels lightheaded and dizzy, but has had no syncopal episodes. She denies dyspnea at present. Reviewing her medications, she has been on rate modulating agents including beta blockade and diltiazem in moderate doses. PAST MEDICAL HISTORY: Remarkable for chronic kidney disease, gastroesophageal reflux disease, recent fall and coronary artery disease. PHYSICAL EXAMINATION: GENERAL: Reveals an elderly female who is responsive, but somewhat lethargic. VITAL SIGNS: Blood pressure is 100/70, pulse rate is 28 and irregular and respirations are 18 per minute. NECK: Jugular venous pressure is normal. CHEST: Clear anteriorly. CARDIAC: Reveals an irregular rhythm at a significantly bradycardic rate. ABDOMEN: Mildly obese. EXTREMITIES: [place] [address] CONSULTATION Name: SARAIVIC M Room: [address] IN ..#: [id number] Admission: 11/18/18 Attend Phys: Hira Zhou MD Discharge: 11/28/18 Date of : [birth year] Report #: [id number] EKG reveals atrial fibrillation with a markedly bradycardic ventricular response. IMPRESSION: 1. Atrial fibrillation with a markedly bradycardic ventricular response. 2. History of chronic systolic heart failure. 3. History of chronic renal insufficiency at modest magnitude. 4. Recent intertrochanteric femur fracture on the left. RECOMMENDATIONS: 1. Given the magnitude of bradycardic response atrial fibrillation, I would recommend temporary pacing. 2. Hold beta blockade and diltiazem. 3. Modest fluid repletion as a BUN and creatinine suggest mild prerenal azotemia. 4. We will plan to proceed with placement of temporary pacemaker. We will review her rates in the a.m. after holding the AV node modulating agents. Clinical care time is 40 minutes from 1420 to 1500 on 11/18/2018. <ELECTRONICALLY SIGNED> By: Alec Beltran MD, [facility] 12/04/18 0942 1502 [id number] Alessandro Beltran MD, [facility] /nt
--- NOTE | 2018-12-04 09:43 | CARD ---
[address] [address] CARDIAC CATH REPORT Name: VIC MOON Room: [address] IN M.R.#: [id number] Admission: 11/18/18 Attend Phys: Hira Zhou MD Discharge: 11/28/18 Date of : [birth year] Report #: [id number] THIS REPORT FOR: //name// CC: Prince Zhou DATE OF SERVICE: 11/18/2018 CATHETERIZATION PROCEDURE: Placement of a temporary transvenous pacemaker via the right femoral approach. INDICATION: High-grade AV block. TECHNIQUE: After careful preparation and draping, the right femoral site, local anesthesia was achieved by injection of 2% lidocaine. Utilizing the Seldinger technique, a 5-Guamanian sheath was inserted into the right femoral vein. I then advanced a 5-Guamanian balloon tipped pacing catheter via the right femoral venous approach and positioned the tip of the right ventricular apex. There was satisfactory capture at a threshold of 0.8 millivolts and a current of 5 milliamps. The pacemaker was programmed to various rates with the highest systolic pressure being at a rate of 60. It was left in demand VVI mode, rate 60, current 5 milliamps. The sheath and catheter were sutured in position and a sterile dressing was applied. The patient was transferred to the ICU in stable condition and he continually paced rate of 60. IMPRESSION: Placement of a temporary transvenous pacemaker via the right femoral approach. <ELECTRONICALLY SIGNED> By: Alec Beltran MD, [facility] 12/04/18 0943 [id number] [id number] Alessandro Beltran MD, FAC /nt
== END 2018-11-28 16:38 | DRG 177 ==
LOC: M.ICU 14:16 → M.2W 11-21 08:15
PROVIDERS: Internal Medicine; Internal Medicine Gastroenterology; ADMIT Internal Medicine
PROC: 5A1213Z Performance of Cardiac Pacing, Intermittent (ICD-10-PCS; principal; 2018-11-18)
PROC: 0DJ08ZZ Inspection of Upper Intestinal Tract, Via Natural or Artificial Opening Endoscopic (ICD-10-PCS; 2018-11-23)
PROC: 0D758ZZ Dilation of Esophagus, Via Natural or Artificial Opening Endoscopic (ICD-10-PCS; 2018-11-26)
DX: J15.6 Pneumonia due to other Gram-negative bacteria (principal); N17.0 Acute kidney failure with tubular necrosis; R57.0 Cardiogenic shock; G92 Toxic encephalopathy; I50.22 Chronic systolic (congestive) heart failure; D68.59 Other primary thrombophilia; N39.0 Urinary tract infection, site not specified; R00.1 Bradycardia, unspecified; K21.9 Gastro-esophageal reflux disease without esophagitis; I25.10 Atherosclerotic heart disease of native coronary artery without angina pectoris; R13.10 Dysphagia, unspecified; I48.2 Chronic atrial fibrillation; N18.3 Chronic kidney disease, stage 3 (moderate); T50.905A Adverse effect of unspecified drugs, medicaments and biological substances, initial encounter; D50.0 Iron deficiency anemia secondary to blood loss (chronic); B96.1 Klebsiella pneumoniae [K. pneumoniae] as the cause of diseases classified elsewhere; K44.9 Diaphragmatic hernia without obstruction or gangrene; K22.2 Esophageal obstruction; E86.0 Dehydration; N99.528 Other complication of incontinent external stoma of urinary tract; Y83.8 Other surgical procedures as the cause of abnormal reaction of the patient, or of later complication, without mention of misadventure at the time of the procedure; Z79.82 Long term (current) use of aspirin; Z79.899 Other long term (current) drug therapy; Z79.01 Long term (current) use of anticoagulants; Z95.1 Presence of aortocoronary bypass graft; Z90.710 Acquired absence of both cervix and uterus; Z87.81 Personal history of (healed) traumatic fracture; Z86.73 Personal history of transient ischemic attack (TIA), and cerebral infarction without residual deficits; I25.2 Old myocardial infarction; Z88.6 Allergy status to analgesic agent; Z91.041 Radiographic dye allergy status; Z85.41 Personal history of malignant neoplasm of cervix uteri; Y92.89 Other specified places as the place of occurrence of the external cause; D50.9 Iron deficiency anemia, unspecified

== ENCOUNTER 2018-11-28 16:00 | Inpatient (IN) | payer MEDICARE ==
[~2018-11-28] VITALS: Ht 152.4 cm; Wt 56.3 kg
[~2018-11-28 16:00] MED LIST changes: +PANTOPRAZOLE SO40 M1 PO
[2018-11-28 17:50] VITALS: BP 158/60
[2018-11-29 05:06] LABS: HEMATOCRIT 31.2 % (37.0-47.0); MCH 31.3 pg (26.0-34.0); MCHC 32.1 g/dL (28.0-37.0); MCV 97.5 fL (80.0-100.0); MPV 8.8 fl. (7.2-11.1); RBC 3.21 mil/uL (4.20-5.00); RDW-CV 20.9 % (10.5-14.5); WBC 3.4 thou/uL (4.0-11.0)
[2018-11-29 05:24] LABS: CALCIUM 8.3 mg/dL (8.5-10.1); POTASSIUM 3.9 mmol/L (3.5-5.1)
[2018-11-29 08:30] VITALS: BP 173/74
[2018-11-29 20:41] VITALS: BP 145/52
[2018-11-30 08:00] VITALS: BP 172/70
[2018-11-30 14:25] LABS: URINE BILIRUBIN NEGATIVE (Negative); URINE BLOOD 1+ (Negative); URINE CLARITY CLEAR; URINE COLOR YELLOW; URINE GLUCOSE-RANDOM NEGATIVE (Negative); URINE KETONES NEGATIVE (Negative); URINE LEUKOCYTES-REFLEX NEGATIVE (Negative); URINE NITRITE-REFLEX NEGATIVE (Negative); URINE PROTEIN TRACE (Negative); URINE UROBILINOGEN 0.2 E.U./dl (0.2-1.0)
[2018-11-30 14:32] LABS: SQUAMOUS NONE SEEN /LPF (0-3)
[2018-11-30 14:33] LABS: BACTERIA-REFLEX >30 Many /HPF (None Seen); MUCUS None Seen strn/LPF (None Seen); URINE RBC 3-10 Few /HPF (0-2); URINE WBC-REFLEX 0-5 Rare /HPF (0-5)
[2018-11-30 14:34] LABS: CASTS None Seen /LPF (None Seen); CRYSTALS None Seen /LPF (None Seen)
[2018-11-30 20:05] VITALS: BP 175/67
[2018-12-01 08:25] VITALS: BP 178/70
[2018-12-01 19:53] VITALS: BP 148/52
[2018-12-02 08:10] VITALS: BP 166/65
[2018-12-02 19:30] VITALS: BP 175/75
[2018-12-03 05:38] LABS: HEMATOCRIT 33.3 % (37.0-47.0); HEMOGLOBIN 10.8 gm/dL (12.0-15.0); MCH 31.3 pg (26.0-34.0); MCHC 32.4 g/dL (28.0-37.0); MCV 96.4 fL (80.0-100.0); MPV 8.3 fl. (7.2-11.1); RBC 3.45 mil/uL (4.20-5.00); WBC 3.7 thou/uL (4.0-11.0)
[2018-12-03 05:59] LABS: CALCIUM 8.5 mg/dL (8.5-10.1); CREATININE 1.2 mg/dL (0.6-1.3); MAGNESIUM 1.6 mg/dL (1.8-2.4); POTASSIUM 3.9 mmol/L (3.5-5.1)
[2018-12-03 08:00] VITALS: BP 155/58
[2018-12-03 19:30] VITALS: BP 145/58
[2018-12-04 08:00] VITALS: BP 168/57
[2018-12-04 08:06] VITALS: BP 179/76
[2018-12-04 08:30] VITALS: BP 179/76
[2018-12-04 19:30] VITALS: BP 150/59
[2018-12-05 04:58] LABS: HEMATOCRIT 31.9 % (37.0-47.0); HEMOGLOBIN 10.6 gm/dL (12.0-15.0); MCH 31.5 pg (26.0-34.0); MCHC 33.2 g/dL (28.0-37.0); MPV 8.2 fl. (7.2-11.1); RBC 3.36 mil/uL (4.20-5.00); RDW-CV 20.2 % (10.5-14.5)
[2018-12-05 05:11] LABS: CALCIUM 8.2 mg/dL (8.5-10.1); CREATININE 1.1 mg/dL (0.6-1.3); MAGNESIUM 1.9 mg/dL (1.8-2.4); POTASSIUM 3.3 mmol/L (3.5-5.1)
[2018-12-05 07:30] VITALS: BP 150/59
[2018-12-05 08:00] VITALS: BP 164/60
[2018-12-05 14:23] LABS: URINE BILIRUBIN NEGATIVE (Negative); URINE BLOOD 1+ (Negative); URINE CLARITY CLEAR; URINE COLOR YELLOW; URINE GLUCOSE-RANDOM NEGATIVE (Negative); URINE KETONES NEGATIVE (Negative); URINE LEUKOCYTES-REFLEX NEGATIVE (Negative); URINE NITRITE-REFLEX NEGATIVE (Negative); URINE PROTEIN TRACE (Negative); URINE SPECIFIC GRAVITY <= 1.005 (1.005-1.030); URINE UROBILINOGEN 0.2 E.U./dl (0.2-1.0)
[2018-12-05 14:35] LABS: SQUAMOUS 0-3 Few /LPF (0-3)
[2018-12-05 14:36] LABS: CASTS None Seen /LPF (None Seen); CRYSTALS None Seen /LPF (None Seen); URINE RBC 0-2 Rare /HPF (0-2); URINE WBC-REFLEX 6-15 Few /HPF (0-5)
[2018-12-05 19:30] VITALS: BP 150/66
[2018-12-06 07:53] VITALS: BP 163/62
[2018-12-06 20:04] VITALS: BP 156/58
[2018-12-07 08:01] VITALS: BP 180/67
[2018-12-07 12:54] VITALS: BP 152/52
[2018-12-07 20:05] VITALS: BP 169/68
[2018-12-08 08:46] VITALS: BP 150/66
[2018-12-08 19:25] VITALS: BP 166/74
[2018-12-09 08:01] VITALS: BP 165/69
[2018-12-09 19:55] VITALS: BP 165/57
[2018-12-10 08:16] VITALS: BP 171/74
[2018-12-10 12:00] VITALS: BP 148/77
[2018-12-10 20:00] VITALS: BP 163/62
[2018-12-11 08:00] VITALS: BP 165/65
[2018-12-11 13:00] VITALS: BP 152/61
[2018-12-11 19:30] VITALS: BP 146/49
[2018-12-12 07:30] VITALS: BP 156/54
[2018-12-12 20:00] VITALS: BP 145/55
[2018-12-13 08:00] VITALS: BP 158/61
[2018-12-13 20:00] VITALS: BP 148/52
[2018-12-14 08:00] VITALS: BP 163/64
[2018-12-14 20:00] VITALS: BP 123/60
[2018-12-15 08:17] VITALS: BP 177/76
[2018-12-15 20:00] VITALS: BP 168/63
[2018-12-16 07:00] VITALS: BP 163/60
[2018-12-16 19:30] VITALS: BP 141/55
[2018-12-17 07:34] VITALS: BP 167/68
[2018-12-17 14:36] VITALS: BP 167/68
[2018-12-17 19:30] VITALS: BP 154/64
[2018-12-18 08:00] VITALS: BP 137/55
[2018-12-18 08:56] VITALS: BP 137/55
[2018-12-18] MEDS ORDERED: MAGOX 400400 MG PO (11:33)
[2018-12-18] MEDS ORDERED: TYLENOL325 MG PO (11:35)
[2018-12-18] MEDS ORDERED: CALCIUM 600 +1 EAC1 PO (11:43)
[2018-12-18] MEDS ORDERED: B12INJ IM (11:45)
[2018-12-19] MEDS ORDERED: COZAAR 25 MG TA25 M2 PO (18:23)
== END 2018-12-18 16:00 | DRG 91 ==
LOC: M.REH 16:00
PROVIDERS: Internal Medicine; ADMIT Physical Medicine & Rehabilitation
DX: G92 Toxic encephalopathy (principal); N17.0 Acute kidney failure with tubular necrosis; R57.0 Cardiogenic shock; J15.6 Pneumonia due to other Gram-negative bacteria; I50.22 Chronic systolic (congestive) heart failure; D62 Acute posthemorrhagic anemia; D68.69 Other thrombophilia; N39.0 Urinary tract infection, site not specified; M80.851A Other osteoporosis with current pathological fracture, right femur, initial encounter for fracture; R00.1 Bradycardia, unspecified; R25.8 Other abnormal involuntary movements; I48.2 Chronic atrial fibrillation; I25.10 Atherosclerotic heart disease of native coronary artery without angina pectoris; T50.995A Adverse effect of other drugs, medicaments and biological substances, initial encounter; N18.3 Chronic kidney disease, stage 3 (moderate); K21.9 Gastro-esophageal reflux disease without esophagitis; R13.10 Dysphagia, unspecified; E83.42 Hypomagnesemia; S06.2X0A Diffuse traumatic brain injury without loss of consciousness, initial encounter; W18.39XA Other fall on same level, initial encounter; Z88.6 Allergy status to analgesic agent; Z91.041 Radiographic dye allergy status; Z95.1 Presence of aortocoronary bypass graft; Z86.73 Personal history of transient ischemic attack (TIA), and cerebral infarction without residual deficits; I25.2 Old myocardial infarction; Y92.89 Other specified places as the place of occurrence of the external cause; Y93.89 Activity, other specified; Y99.8 Other external cause status; Z95.0 Presence of cardiac pacemaker

== ENCOUNTER 2018-12-19 18:09 | Observation (INO) | payer MEDICARE ==
[~2018-12-19] VITALS: Ht 152.4 cm; Wt 58.1 kg
--- NOTE | ~2018-12-19 | OP ---
[address] [address] OPERATIVE REPORT Name: SARAIVIC M Room: [address] IN .R.#: [id number] Admission: 12/19/18 Attend Phys: Chris Wells MD Discharge: Date of : [birth year] Report #: [id number] THIS REPORT FOR: //name// CC: Prince Wells DATE OF SERVICE: 12/19/2018 PREOPERATIVE DIAGNOSES: 1. History of urinary diversion. 2. Urinary retention. POSTOPERATIVE DIAGNOSES: 1. History of urinary diversion. 2. Urinary retention. PROCEDURES PERFORMED: 1. Proctoscopy. 2. Complex Patrick catheter placement. SURGEON: Chris Wells MD ANESTHESIA: General endotracheal. BRIEF HISTORY: The patient is an 88-year-old female with a history of a cystectomy with Dolores pouch diversion. She performs daily CIC in order to evacuate her pouch. Due to extenuating circumstances, her catheterization routine was disrupted today and therefore she could not be catheterized per her normal schedule. As a result, attempts at catheterization of the pouch were unsuccessful both by the living facility staff and by her family. She was brought to [facility] where additional attempts at catheterizing were unsuccessful. I similarly attempted catheterization and was unsuccessful. Given the above, the recommendation was made to take her to the Operating Room for pouchoscopy and catheter placement under anesthesia. The risks of the procedure including the risks of bleeding, infection, damage to her channel/pouch, need for additional procedures, and anesthetic risks were discussed with the patient and she wished to proceed. PROCEDURE IN DETAIL: The risks and benefits of surgery were discussed with the patient and she wished to proceed. Informed consent was obtained and the patient was transferred to the Operating Room where she was laid supine on the operating room table. After the induction of adequate general endotracheal anesthesia, the patient's right abdomen was prepped and draped in the usual sterile fashion. A timeout was then performed to ensure correct patient and procedure. At this time, a flexible cystoscope was advanced under direct vision and irrigation into her catheterizable channel. [place] [address] OPERATIVE REPORT Name: VIC MOON Room: [address] IN [facility]#: [id number] Admission: 12/19/18 Attend Phys: Chris Wells MD Discharge: Date of : [birth year] Report #: [id number] under direct vision and it became apparent that the catheterizable channel had become looped. Advancement of the cystoscope under direct and fluoroscopic guidance was performed until the patient's pouch was entered. The cystoscope made a 360-degree turn through the catheterizable channel before it entered the pouch. Once the pouch had been entered, a 0.035 sensor wire was advanced through the cystoscope until it was seen to coil within the pouch. The cystoscope was removed leaving the wire in place. A 16-Kazakh jamul tip catheter was advanced over the wire under fluoroscopic guidance into the pouch. The catheter balloon was inflated with 10 mL of sterile water and the wire was removed. The catheter was then placed to gravity drainage and 2 liters of clear yellow urine were drained. After the pouch had completely drained, fluoroscopic imaging demonstrated straightening out the catheterizable channel with the catheter in place. The patient was then awakened from anesthesia, and transferred to the Postoperative Care Unit in stable condition. She tolerated the procedure well. COMPLICATIONS: None. ESTIMATED BLOOD LOSS: None. IV FLUIDS: Crystalloid. DRAINS: 16-Kazakh jamul tip catheter per catheter per her catheterizable stoma. FINDINGS: 1. Tortuous catheterizable channel necessitating 360-degree loop of the cystoscope in order to enter the pouch. 2. A 16-Kazakh jamul tip catheter placed over wire into the pouch under fluoroscopic guidance. 3. Drainage of 2 liters of clear yellow urine following catheter placement. By: [id number] Wells MD /nt
[~2018-12-19 18:09] MED LIST changes: +CALCIUM 600 +1 EAC1 PO; +MAGOX 400400 MG PO; +TYLENOL325 MG PO
[2018-12-19 18:10] VITALS: BP 181/71
[2018-12-19] MEDS ORDERED: COZAAR 25 MG TA25 M2 PO (18:23)
[2018-12-19 18:46] LABS: ABSOLUTE BASOPHILS 0.1 thou/uL (0.0-0.2); ABSOLUTE LYMPHOCYTES 0.9 thou/uL (0.8-5.3); ABSOLUTE MONOCYTES 0.4 thou/uL (0.0-1.2); ABSOLUTE NEUTROPHILS 6.4 thou/uL (1.6-8.1); BASOPHILS 0.7 %; EOSINOPHILS 0.2 %; HEMATOCRIT 43.1 % (37.0-47.0); HEMOGLOBIN 14.4 gm/dL (12.0-15.0); MCH 31.6 pg (26.0-34.0); MCHC 33.3 g/dL (28.0-37.0); MCV 94.7 fL (80.0-100.0); MONOCYTES 5.5 %; MPV 8.6 fl. (7.2-11.1); NUCLEATED RBCS 0 /100WBC; PLATELET COUNT* 272 thou/uL (150-400); POLYS 81.6 %; RBC 4.55 mil/uL (4.20-5.00); RDW-CV 19.9 % (10.5-14.5); WBC 7.9 thou/uL (4.0-11.0)
[2018-12-19 18:51] LABS: CALCIUM 9.4 mg/dL (8.5-10.1); CREATININE 1.5 mg/dL (0.6-1.3); POTASSIUM 4.1 mmol/L (3.5-5.1)
[2018-12-19 19:01] LABS: ALBUMIN 3.6 g/dL (3.4-5.0); TOTAL BILIRUBIN 0.8 mg/dL (<0.1-1.0); TOTAL PROTEIN 7.4 g/dL (6.4-8.2)
[2018-12-19 21:29] VITALS: BP 185/54
[2018-12-19 23:25] VITALS: BP 100/63
[2018-12-19 23:57] VITALS: BP 100/63; BP 139/54
[2018-12-20 04:00] VITALS: BP 133/55
--- NOTE | 2018-12-20 04:04 | NUR ---
PT ADMITTED TO ROOM 105 FROM SURGERY FOLLOWING CATHETER PLACEMENT. PT SLEEPING AT TIME OF ADMISSION. ADMISSION HX AND ASSESSMENT DONE BEST POSSIBLE. PT ON 2L O2 O2 SAT WAS IN THE 80'S UPON ARRIVAL. FALL PRECAUTION IN PLACE. CALL LIGHT WITHIN REACH. WILL CONTINUE TO MONITOR.
--- NOTE | 2018-12-20 06:28 | NUR ---
PT SLEPT THROUGH SHIFT. NC IN PLACE THROUGH MOUTH. FALL PRECAUTION IN PLACE. SUPRAPUBIC CATHETER IN PLACE. HOURLY ROUNDINGS MADE. WILL CONITNUE TO MONITOR.
[2018-12-20 07:40] VITALS: BP 134/52
[2018-12-20] MEDS ORDERED: PACERONE 200 M200 M1 PO (07:52)
[2018-12-20] MEDS ORDERED: FOSAMAX 70 MG T70 MG PO (07:54)
--- NOTE | 2018-12-20 09:49 | EKG ---
[place] [address] ELECTROCARDIOGRAM REPORT Name: SARAIVIC Bucky Room: [address] M.R.#: [id number] Admission: 12/19/18 Attend Phys: Hira Zhou MD Discharge: Date of : [birth year] Report #: [id number] THIS REPORT FOR: //name// [facility] ED Test Date: 2018-12-19 Test Time: 19:41:14 Pat Name: VIC MOON Department: Room: [facility] Gender: F Dialysis Biomed Technician: BRIANNE : 1930 Requested By: Willi Dorsey Order Number: [id number] MD: Allen Guerra Measurements Intervals [place] Rate: 75 P: -24 DC: 174 QRS: -49 QRSD: 160 T: 116 QT: 463 QTc: 518 Interpretive Statements Sinus rhythm Left bundle branch block Compared to ECG 11/21/2018 08:51:03 rate increased Electronically Signed On 12-20-2018 9:49:26 CDT by Allen Guerra [email or web address] <ELECTRONICALLY SIGNED> By: Allen Guerra MD, [facility] 12/20/18 0949 40 40 Allen Guerra MD, [facility] /EPI
--- NOTE | 2018-12-20 15:45 | NUR ---
PT.TO DISCHARGE TODAY. HAVING LOW O2 SATS. ORDERED RESTING AND EXERCISE OXIMETRY. WILL NEED . FAXED ORDER TO [facility]. SHAHRIAR SPOKE WITH HER EARLIER TO NOTIFY PT.RETURNING TODAY. FAXED HER H&P,CONSULT AND OR REPORT. SHE SET UP WC VAN FOR 1600. DIGNARN TO CALL REPORT.
[2018-12-20 16:00] VITALS: BP 137/52
[2018-12-20 16:15] VITALS: BP 134/51
--- NOTE | 2018-12-20 17:51 | NUR ---
ASSUMED CARE OF PATIENT AT APPROX 0730. ALERT AND ORIENTED X4. ASSESSMENT COMPLETED AND CHARTED. VSS ON ROOM AIR. NO COMPLAINTS OF PAIN. 02 SAT AT 85 ON ROOM AIR, SATURATION DID NOT IMPROVE WITH USE OF INCENTIVE SPIROMETER. REST AND EXCERCISE ORDERED AND PATIENT ORDERED TO HSAVE 2 LITERS 02 ON DISCHARGE. PATIENT UP WITH WALKER AND GAIT BELT. SUPRAPUBIC CATHETER IN PLACE AND DRAINING DEPENDENTLY, WILL REMAIN IN PLACE FOR 2 WEEKS, THEN FOLLOW UP WITH PATIENTS UROLOGIST AT . PATIENT DISCHARGED AT 1630 TO [facility] VIA WHEELCHAIR VAN. ALL PERSONAL BELONGINGS AND DISCHARGE PACKET SENT WITH PATIENT.
== END 2018-12-20 16:30 ==
LOC: M.ERS 18:09 → M.ORTHSURG 21:15 → M.TBA-ER 21:15 → M.ORTHSURG 21:15
PROVIDERS: Nurse Practitioner Psychiatric/Mental Health; ADMIT Internal Medicine
DX: R33.9 Retention of urine, unspecified (principal); I48.91 Unspecified atrial fibrillation; S72.009S Fracture of unspecified part of neck of unspecified femur, sequela; X58.XXXS Exposure to other specified factors, sequela; I25.2 Old myocardial infarction; I50.20 Unspecified systolic (congestive) heart failure; N18.3 Chronic kidney disease, stage 3 (moderate); Z86.73 Personal history of transient ischemic attack (TIA), and cerebral infarction without residual deficits; Z95.1 Presence of aortocoronary bypass graft